=== PATIENT | female | born 1955 | race Caucasian/White ===

== ENCOUNTER → 2016-12-11 | Outpatient (REF) | payer OTHER | LOC: M LAB REF 16:07 | PROVIDERS: ATTEND Internal Medicine | DX: M25.549 Pain in joints of unspecified hand (principal) ==

== ENCOUNTER → 2017-04-20 | Outpatient (REF) | payer OTHER ==
[2017-04-23 00:06] LABS: Lyme Disease IgG/IgM Antibodie <0.91 ISR (0.00-0.90); Lyme Disease IgM Ab Quantitati <0.80 index (0.00-0.79)
== END ==
LOC: M LAB REF 16:46
PROVIDERS: ATTEND Nurse Practitioner Family
DX: M15.9 Polyosteoarthritis, unspecified (principal)

== ENCOUNTER → 2019-06-27 | Outpatient (CLI) | payer BC, OTHER ==
--- NOTE | 2019-06-27 12:41 | REP ---
Left wrist four views : There is no fracture or dislocation. Mineralization and joint spaces are normal except for joint space narrowing at the thumb C - MC articulation. There are no calcifications or foreign bodies. Impression: Joint space narrowing at the thumb C - MC articulation. Otherwise, negative left wrist . Electronically Signed by Binu Moss MD 06/27/2019 12:32 P
--- NOTE | 2019-06-27 12:43 | REP ---
Right hand four views: There is joint space narrowing at the thumb CMC articulation accompanied by a erosion into the base of the thumb metacarpal. Mineralization and joint spaces are otherwise unremarkable. There are no calcifications or foreign bodies. No fracture or dislocation. Impression: Findings at the thumb CMC articulation as described, otherwise negative right hand. Left hand four views: There is joint space narrowing at the thumb CMC articulation. There is lucency in the base of the thumb metacarpal compatible with a bone cyst. Mineralization and joint spaces otherwise are unremarkable. There are no calcifications or foreign bodies. There is no fracture or dislocation. Impression: Findings at the thumb CMC articulation. Otherwise, negative left hand. Electronically Signed by Binu Moss MD 06/27/2019 12:35 P
== END ==
LOC: M RAD 11:53
PROVIDERS: ATTEND Internal Medicine Rheumatology
DX: M19.041 Primary osteoarthritis, right hand (principal); M19.042 Primary osteoarthritis, left hand

== ENCOUNTER → 2019-07-13 | Outpatient (CLI) | payer BC, OTHER ==
[2019-07-13 14:23] LABS: BLOOD UREA NITROGEN 19 MG/DL (7-18); CREATININE FOR GFR 0.73 MG/DL (0.55-1.30); GLOMERULAR FILTRATION RATE > 60.0 (>45)
== END ==
LOC: M LAB 13:33
PROVIDERS: ATTEND Orthopaedic Surgery Hand Surgery
DX: Z01.812 Encounter for preprocedural laboratory examination (principal)

== ENCOUNTER → 2019-09-07 | Outpatient (REF) | payer BC, OTHER | LOC: M LAB REF 16:47 | PROVIDERS: ATTEND Physician Assistant | DX: J02.9 Acute pharyngitis, unspecified (principal) ==

== ENCOUNTER → 2020-01-24 | Outpatient (CLI) | payer MEDICARE, BC, OTHER ==
--- NOTE | 2020-01-24 15:50 | REP ---
MAXILLOFACIAL CT STUDY WITHOUT CONTRAST: HISTORY: Chronic maxillary sinusitis. COMPARISON: CT study, August 22, 2014. FINDINGS: Preliminary digital canvas baster jumpbasting radiograph is unremarkable. Incidental note is again made of a diffuse stippled pattern of intradermal calcifications in the periorbital and malar soft tissues, unchanged from comparison study. This may reflect chronic connective tissue disease. The maxillary sinuses are clear. There is no evidence of ethmoid, sphenoid, or frontal sinusitis. Mastoid aeration is normal and symmetric. Middle ear cavities are aerated. No petrous bone abnormality is seen. There are aerated eliezer bullosa bilaterally in the middle turbinates, larger on the right than the left. The nasal turbinate bows to the left with a moderate to large septal beak posteriorly positioned. These findings are unchanged. Ostiomeatal complexes remain widely patent. No intraorbital abnormality is seen. The deep facial soft tissues are unremarkable. IMPRESSION: Septal deviation to the left with a moderate-size septal beak. Aerated eliezer bullosa bilaterally, right larger than left. Clear paranasal sinuses. Diffuse dermal calcification. Electronically Signed by Jakob Sharma MD 01/24/2020 05:30 P
== END ==
LOC: M RAD 13:45
PROVIDERS: ATTEND Otolaryngology
DX: J34.2 Deviated nasal septum (principal); J32.0 Chronic maxillary sinusitis

== ENCOUNTER → 2021-01-13 | Outpatient (CLI) | payer MEDICARE, BC ==
--- NOTE | 2021-01-13 15:22 | DEXAMM ---
INDICATION: OSTEOPENIA. COMPARISON: None. TECHNIQUE: Bone density was measured using dual-energy x-ray absorptiometry (DEXA). FINDINGS: AP SPINE L1-L4 BMD 1.380 g/cm2 Young Adult T-Score 1.5 Age Matched Z-Score 3.1. LT FEMUR, TOTAL BMD 1.137 g/cm2 Young Adult T-Score 1.0 Age Matched Z-Score 2.3. LT NECK BMD 1.155 g/cm2 Young Adult T-Score 0.8 Age Matched Z-Score 2.3. RT FEMUR, TOTAL BMD 1.078 g/cm2 Young Adult T-Score 0.6 Age Matched Z-Score 1.8. RT NECK BMD 1.095 g/cm2 Young Adult T-Score 0.4 Age Matched Z-Score 1.9. IMPRESSION: There is normal bone density of the spine. There is normal bone density of the left hip. There is normal bone density of the right hip. FOLLOW-UP: Recommendation for the next bone density exam: 5 years. <Electronically signed by Binu Rowe > 01/13/21 [id number]
== END ==
LOC: M WHC 13:56
PROVIDERS: ATTEND Internal Medicine
DX: M81.0 Age-related osteoporosis without current pathological fracture (principal)

== ENCOUNTER → 2021-07-25 | Outpatient (CLI) | payer MEDICARE, BC, OTHER ==
[~2021-07-25] MED LIST: ESTR3TA; FINA15GE; MYCO250C
== END ==
LOC: M LABSMTC 10:07
PROVIDERS: ATTEND Anesthesiology
DX: Z01.818 Encounter for other preprocedural examination (principal); Z11.52 Encounter for screening for COVID-19

== ENCOUNTER 2021-07-30 06:41 | Day surgery (SDC) | payer MEDICARE, BC, OTHER ==
[~2021-07-30] VITALS: Ht 171.4 cm; Wt 56.2 kg
[~2021-07-30 06:41] MED LIST changes: +NS 1,000 ML IV ONE
--- OUTSIDE RECORDS SUMMARY | 2021-07-30 06:43 | CCD | Continuity of Care Document ---
Author Author Mikki PEOPLES Organization Unknown Address [address] [place] [address] Phone [phone] Care Team Providers Care Employment Appeals Examiner Name Role Phone Phan Weathers M.D. [facility] [phone] Problems Active Problems Provider Date Female climacteric state Althea Peoples MD Onset: 01/11/20 12 Social History Type Date Description Comments Sex Unknown Tobacco Use Start: Unknown End: Unknown Quit Smoking Status Reviewed: 06/11/21 Quit ETOH Use Occasionally consumes alcohol Recreational Drug Use Denies Drug Use Tobacco Use Start: Unknown End: Unknown Patient is a former smoker Exercise Type/Frequency Exercises regularly Allergies, Adverse Reactions, Alerts Active Allergies Criticality Reaction | Severity Comments Date NKDA Unable to assess criticality 01/11/2012 Envirnomental Unable to assess criticality 03/15/2015 Medications Active Medications SIG Qnty Indications Ordering Provide r Date Premarin 0.3mg Tablets 1 by mouth three times a day 270tabs Althea Peoples MD 01/11/2012 Finacea 15% Gel Unknown Doxycycline Monohydrate 50mg Tablets Unknown Immunizations Description No Information Available Vital Signs Date Vital Result Comment 06/11/2021 2:08pm BP Systolic 120 mmHg BP Diastolic 78 mmHg Height 66.75 inches 5'6.75" Weight 129.00 lb BMI (Body Mass Index) 20.4 kg/m2 BSA (Body Surface Area) 1.67 m2 05/31/2020 2:35pm BP Systolic 148 mmHg BP Diastolic 86 mmHg Height 66.75 inches 5'6.75" Weight 130.00 lb BMI (Body Mass Index) 20.5 kg/m2 BSA (Body Surface Area) 1.68 m2 Results Description No Information Available Procedures Date Code Description Status 06/11/2021 07003 Office/Outpatient Established MDM 10-19 Min Completed 11/05/2020 [id number] Mammogram Completed 10/04/2019 [id number] Mammogram Completed 07/15/2018 [id number] Mammogram Completed 12/03/2011 [id number] Bone Mineral Density Test Comple 20/20 [employer] 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 Althea Peoples MD N9 5.8 Other specified menopausal and perimenopausal disorders Z12.39 Encounter for oth screening for malignant neoplasm of breast Assessments Date Code Description Provider 06/11/2021 N95.8 Other specified menopausal and p erimenopausal disorders Althea Peoples MD 06/11/2021 Z12.39 Encounter for other screening for malignant neoplasm of breast Althea Peoples MD Plan of Treatment Future Appointment(s):* 06/19/2022 2:00 pm - Althea Peoples MD at [facility] lamp replacer 06/11/2021 - Althea Peoples MD* N95.8 Other specified menopausal and perimenopausal disorders * Z12.39 Encounter for other screening for malignant neoplasm of breast Functional Status Description No Information Available Mental Status Description No Information Available Referrals Description No Information Available
--- OUTSIDE RECORDS SUMMARY | 2021-07-30 06:43 | CCD | Continuity of Care Document ---
Author Author Mikki PEOPLES Organization Unknown Address [address] [place] [address] Phone [phone] Care Team Providers Care Quickbooks Bookkeeper Name Role Phone Phan Weathers M.D. 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
--- OUTSIDE RECORDS SUMMARY | 2021-07-30 06:44 | CCD ---
Author Author [facility] Organization [facility] Address Unknown Phone Unavailable Care Team Providers Care Party Plan Salesperson Name Role Phone Nicholas Cedillo MD Unavailable Unavailable Nicholas Cedillo MD Unavailable Unavailable Nicholas Cedillo MD Unavailable Unavailable Nicholas Cedillo MD Unavailable Unavailable Nicholas Cedillo MD Unavailable Unavailable Nicholas Cedillo MD Unavailable Unavailable Nicholas Cedillo MD Unavailable Unavailable Nicholas Cedillo MD Unavailable Unavailable Nicholas Cedillo MD Unavailable Unavailable Nicholas Cedillo MD Unavailable Unavailable Nicholas Cedillo MD Unavailable Unavailable Nicholas Cedillo MD Unavailable Unavailable Nicholas Cedillo MD Unavailable Unavailable Nicholas Cedillo MD Unavailable Unavailable Nicholas Cedillo MD Unavailable Unavailable Nicholas Cedillo MD Unavailable Unavailable Nicholas Cedillo MD Unavailable Unavailable Nicholas Cedillo MD Unavailable Unavailable Nicholas Cedillo MD Unavailable Unavailable Nicholas Cedillo MD Unavailable Unavailable Nicholas Cedillo MD Unavailable Unavailable Nicholas Cedillo MD Unavailable Unavailable Nicholas Cedillo MD Unavailable Unavailable Nicholas Cedillo MD Unavailable Unavailable Nicholas Cedillo MD Unavailable Unavailable Nicholas Cedillo MD Unavailable Unavailable Nicholas Cedillo MD Unavailable Unavailable Nicholas Cedillo MD Unavailable Unavailable Nicholas Cedillo MD Unavailable Unavailable Nicholas Cedillo MD Unavailable Unavailable Nicholas Cedillo MD Unavailable Unavailable Nicholas Cedillo MD Unavailable Unavailable Nicholas Cedillo MD Unavailable Unavailable Nicholas Cedillo MD Unavailable Unavailable Nicholas Cedillo MD Unavailable Unavailable Nicholas Cedillo MD Unavailable Unavailable Nicholas Cedillo MD Unavailable Unavailable Mamadou, S Leonel MD Unavailable Unavailable Mamadou, S Leonel NOE Unavailable Unavailable Mamadou, S Leonel MD Unavailable Unavailable Mamadou, S Leonel MD Unavailable Unavailable Mamadou, S Leonel MD Unavailable Unavailable Mamadou, S Leonel MD Unavailable Unavailable Mamadou, S Leonel MD Unavailable Unavailable Mamadou, S Leonel MD Unavailable Unavailable Mamadou, S Leonel MD Unavailable Unavailable Mamadou, S Leonel MD Unavailable Unavailable Mamadou, S Leonel MD Unavailable Unavailable Mamadou, S Leonel MD Unavailable Unavailable Mamadou, S Leonel MD Unavailable Unavailable PEOPLES, Johann HODGSON MD Unavailable Unavailable PEOPLES, Johann HODGSON MD Unavailable Unavailable PEOPLES, Johann HODGSON MD Unavailable Unavailable PEOPLES, L GOKUL NOE Unavailable Unavailable PEOPLES, L GOKUL NOE Unavailable Unavailable PEOPLES, L GOKUL NOE Unavailable Unavailable PEOPLES, L GOKUL NOE Unavailable Unavailable PEOPLES, L GOKUL NOE Unavailable Unavailable PEOPLES, L GOKUL NOE Unavailable Unavailable PEOPLES, L GOKUL NOE Unavailable Unavailable PEOPLES, L GOKUL NOE Unavailable Unavailable PEOPLES, L GOKUL NOE Unavailable Unavailable PEOPLES, L GOKUL NOE Unavailable Unavailable PEOPLES, L GOKUL NOE Unavailable Unavailable PEOPLES, L GOKUL NOE Unavailable Unavailable PEOPLES, L GOKUL NOE Unavailable Unavailable PEOPLES, L GOKUL NOE Unavailable Unavailable PEOPLES, L GOKUL NOE Unavailable Unavailable PEOPLES, L GOKUL NOE Unavailable Unavailable PEOPLES, L GOKUL NOE Unavailable Unavailable PEOPLES, L GOKUL NOE Unavailable Unavailable PEOPLES, L GOKUL NOE Unavailable Unavailable PEOPLES, L GOKUL NOE Unavailable Unavailable PEOPLES, L GOKUL NOE Unavailable Unavailable PEOPLES, L GOKUL NOE Unavailable Unavailable PEOPLES, L GOKUL NOE Unavailable Unavailable PEOPLES, L GOKUL NOE Unavailable Unavailable PEOPLES, L GOKUL NOE Unavailable Unavailable PEOPLES, Johann HODGSON MD Unavailable Unavailable PEOPLES, L GOKUL NOE Unavailable Unavailable PEOPLES, L GOKUL NOE Unavailable Unavailable PEOPLES, L GOKUL NOE Unavailable Unavailable PEOPLES, L GOKUL NOE Unavailable Unavailable PEOPLES, Johann HODGSON MD Unavailable Unavailable PEOPLES, L GOKUL NOE Unavailable Unavailable PEOPLES, L GOKUL NOE Unavailable Unavailable PEOPLES, Johann HODGSON MD Unavailable Unavailable PEOPLES, Johann HODGSON MD Unavailable Unavailable PEOPLES, L GOKUL NOE Unavailable Unavailable PEOPLES, L GOKUL NOE Unavailable Unavailable PEOPLES, Johann HODGSON MD Unavailable Unavailable PEOPLES, Johann HODGSON MD Unavailable Unavailable PEOPELS, L GOKUL NOE Unavailable Unavailable PEOPLES, Johann GRAVESCI MD Unavailable Unavailable Johann PEOPLES MD Unavailable Unavailable JasielMairsa MD Unavailable Unavailable JasielMarisa MD Unavailable Unavailable JasielMarisa MD Unavailable Unavailable JasielMarisa MD Unavailable Unavailable FruitlandMarisa MD Unavailable Unavailable FruitlandMarisa MD Unavailable Unavailable FruitlandMarisa MD Unavailable Unavailable FruitlandMarisa MD Unavailable Unavailable JasielMarisa MD Unavailable Unavailable FruitlandMarisa MD Unavailable Unavailable FruitlandMarisa MD Unavailable Unavailable JasielMarisa MD Unavailable Unavailable JasielMarisa MD Unavailable Unavailable FruitlandMarisa MD Unavailable Unavailable FruitlandMarisa MD Unavailable Unavailable FruitlandMarisa MD Unavailable Unavailable JasielMarisa MD Unavailable Unavailable FruitlandMarisa MD Unavailable Unavailable JasielMarisa MD Unavailable Unavailable FruitlandMarisa MD Unavailable Unavailable JasielMarisa MD Unavailable Unavailable JasielMarisa MD Unavailable Unavailable FruitlandMarisa MD Unavailable Unavailable FruitlandMarisa MD Unavailable Unavailable JasielMarisa MD Unavailable Unavailable FruitlandMarisa MD Unavailable Unavailable JasielMarisa MD Unavailable Unavailable FruitlandMarisa MD Unavailable Unavailable JasielMarisa MD Unavailable Unavailable JasielMarisa MD Unavailable Unavailable JasielMarisa MD Unavailable Unavailable FruitlandMarisa MD Unavailable Unavailable FruitlandMarisa carmona MD Unavailable Unavailable FruitlandMarisa carmona MD Unavailable Unavailable FruitlandMarisa carmona MD Unavailable Unavailable JasielMarisa MD Unavailable Unavailable FruitlandMarisa carmona MD Unavailable Unavailable JasielMarisa MD Unavailable Unavailable JasielMarisa MD Unavailable Unavailable FruitlandMarisa carmona MD Unavailable Unavailable JasielMarisa carmona MD Unavailable Unavailable JasielMarisa MD Unavailable Unavailable JasielMarisa MD Unavailable Unavailable JasielMarisa MD Unavailable Unavailable FruitlandMarisa MD Unavailable Unavailable FruitlandMarisa MD Unavailable Unavailable JasielMarisa MD Unavailable Unavailable JasielMarisa MD Unavailable Unavailable FruitlandMarisa MD Unavailable Unavailable FruitlandMarisa MD Unavailable Unavailable JasielMarisa MD Unavailable Unavailable FruitlandMarisa MD Unavailable Unavailable JasielMarisa MD Unavailable Unavailable JasielMarisa MD Unavailable Unavailable Fruitland, F Chisholm MD Unavailable Unavailable JasielMarisa carmona MD Unavailable Unavailable JasielMarisa carmona MD Unavailable Unavailable FruitlandMarisa carmona MD Unavailable Unavailable JasielMarisa MD Unavailable Unavailable JasielMarisa MD Unavailable Unavailable JasielMarisa carmona MD Unavailable Unavailable FruitlandMarisa carmona MD Unavailable Unavailable JasielMarisa carmona MD Unavailable Unavailable JasielMarisa carmona MD Unavailable Unavailable FruitlandMarisa carmona MD Unavailable Unavailable FruitlandMarisa carmona MD Unavailable Unavailable JasielMarisa carmona MD Unavailable Unavailable JasielMarisa carmona MD Unavailable Unavailable JasielMarisa carmona MD Unavailable Unavailable JasielMarisa carmona MD Unavailable Unavailable FruitlandMarisa carmona MD Unavailable Unavailable JasielMarisa carmona MD Unavailable Unavailable FruitlandMarisa carmona MD Unavailable Unavailable FruitlandMarisa carmona MD Unavailable Unavailable JasielMarisa carmona MD Unavailable Unavailable JasielMarisa carmona MD Unavailable Unavailable JasielMarisa carmona MD Unavailable Unavailable JasielMarisa carmona MD Unavailable Unavailable JasielMarisa carmona MD Unavailable Unavailable JasielMarisa carmona MD Unavailable Unavailable FruitlandMarisa carmona MD Unavailable Unavailable JasielMarisa carmona MD Unavailable Unavailable JasielMarisa carmona MD Unavailable Unavailable FruitlandMarisa carmona MD Unavailable Unavailable JasielMarisa carmona MD Unavailable Unavailable JasielMarisa MD Unavailable Unavailable BANDAR, P SANDRA MD Unavailable Unavailable BANDAR, P SANDRA MD Unavailable Unavailable BANDAR, P SANDRA MD Unavailable Unavailable BANDAR, P SANDRA MD Unavailable Unavailable BANDAR, P SANDRA MD Unavailable Unavailable BANDAR, P SANDRA MD Unavailable Unavailable BANDAR, P SANDRA MD Unavailable Unavailable BANDAR, P SANDRA MD Unavailable Unavailable BANDAR, P SANDRA MD Unavailable Unavailable BANDAR, P SANDRA MD Unavailable Unavailable BANDAR, P SANDRA MD Unavailable Unavailable BANDAR, P SANDRA MD Unavailable Unavailable BANDAR, P SANDRA MD Unavailable Unavailable BANDAR, P SANDRA MD Unavailable Unavailable BANDAR, P SANDRA MD Unavailable Unavailable BANDAR, P SANDRA MD Unavailable Unavailable BANDAR, P SANDRA MD Unavailable Unavailable BANDAR, P SANDRA MD Unavailable Unavailable BANDAR, P SANDRA MD Unavailable Unavailable BANDAR, P SANDRA MD Unavailable Unavailable BANDAR, P SANDRA MD Unavailable Unavailable BANDAR, P SANDRA MD Unavailable Unavailable BANDAR, P SANDRA MD Unavailable Unavailable BANDAR, P SANDRA MD Unavailable Unavailable BANDAR, P SANDRA MD Unavailable Unavailable BANDAR, P SANDRA MD Unavailable Unavailable BANDAR, P SANDRA MD Unavailable Unavailable BANDAR, P SANDRA MD Unavailable Unavailable BANDAR, P SANDRA MD Unavailable Unavailable BANDAR, P SANDRA MD Unavailable Unavailable BANDAR, P SANDRA MD Unavailable Unavailable BANDAR, P SANDRA MD Unavailable Unavailable BANDAR, P SANDRA MD Unavailable Unavailable ABNDAR, P SANDRA MD Unavailable Unavailable BANDAR, P SANDRA MD Unavailable Unavailable BANDAR, P SANDRA MD Unavailable Unavailable BANDAR, P SANDRA MD Unavailable Unavailable BANDAR, P SANDRA MD Unavailable Unavailable BANDAR, P SANDRA MD Unavailable Unavailable BANDAR, P SANDRA MD Unavailable Unavailable BANDAR, P SANDRA MD Unavailable Unavailable BANDAR, P SANDRA MD Unavailable Unavailable BANDAR, P SANDRA MD Unavailable Unavailable BANDAR, P SANDRA MD Unavailable Unavailable BANDAR, P SANDRA MD Unavailable Unavailable BANDAR, P SANDRA MD Unavailable Unavailable BANDAR, P SANDRA MD Unavailable Unavailable BANDAR, P SANDRA MD Unavailable Unavailable BANDAR, P SANDRA MD Unavailable Unavailable BANDAR, P SANDRA MD Unavailable Unavailable BANDAR, P SANDRA MD Unavailable Unavailable BANDAR, P SANDRA MD Unavailable Unavailable BANDAR, P SANDRA MD Unavailable Unavailable BANDAR, P SANDRA MD Unavailable Unavailable BANDAR, P SANDRA MD Unavailable Unavailable BANDAR, P SANDRA MD Unavailable Unavailable BANDAR, P SANDRA MD Unavailable Unavailable BANDAR, P SANDRA MD Unavailable Unavailable BANDAR, P SANDRA MD Unavailable Unavailable BANDAR, P SANDRA MD Unavailable Unavailable BANDAR, P SANDRA MD Unavailable Unavailable BANDAR, P SANDRA MD Unavailable Unavailable BANDAR, P SANDRA MD Unavailable Unavailable BANDAR, P SANDRA MD Unavailable Unavailable BANDAR, P SANDRA MD Unavailable Unavailable BANDAR, P SANDRA MD Unavailable Unavailable BANDAR, P SANDRA MD Unavailable Unavailable BANDAR, P SANDRA MD Unavailable Unavailable BANDAR, P SANDRA MD Unavailable Unavailable BANDAR, P SANDRA MD Unavailable Unavailable BANDAR, P SANDRA MD Unavailable Unavailable BANDAR, P SANDRA MD Unavailable Unavailable BANDAR, P SANDRA MD Unavailable Unavailable BANDAR, P SANDRA MD Unavailable Unavailable BANDAR, P SANDRA MD Unavailable Unavailable BANDAR, P SANDRA MD Unavailable Unavailable BANDAR, P SANDRA MD Unavailable Unavailable BANDAR, P SANDRA MD Unavailable Unavailable BANDAR, P SANDRA MD Unavailable Unavailable BANDAR, P SANDRA MD Unavailable Unavailable BANDAR, P SANDRA MD Unavailable Unavailable BANDAR, P SANDRA MD Unavailable Unavailable BANDAR, P SANDRA MD Unavailable Unavailable BANDAR, P SANDRA MD Unavailable Unavailable BANDAR, P SANDRA MD Unavailable Unavailable BANDAR, P SANDRA MD Unavailable Unavailable BANDAR, P SANDRA MD Unavailable Unavailable BANDAR, P SANDRA MD Unavailable Unavailable BANDAR, P SANDRA MD Unavailable Unavailable BANDAR, P SANDRA MD Unavailable Unavailable BANDAR, P SANDRA MD Unavailable Unavailable BANDAR, P SANDRA MD Unavailable Unavailable BANDAR, P SANDRA MD Unavailable Unavailable Re-disclosure Warning The records that you are about to access may contain information from federally-assisted alcohol or drug abuse programs. If such information is present, then the following federally mandated warning applies: This information has been disclosed to you from records protected by federal confidentiality rules (42 CFR part 2). The federal rules prohibit you from making any further disclosure of this information unless further disclosure is expressly permitted by the written consent of the person to whom it pertains or as otherwise permitted by 42 CFR part 2. A general authorization for the release of medical or other information is NOT sufficient for this purpose. The Federal rules restrict any use of the information to criminally investigate or prosecute any alcohol or drug abuse patient.The records that you are about to access may contain highly sensitive health information, the redisclosure of which is protected by Article 27-F of the [facility] Public Health law. If you continue you may have access to information: Regarding HIV / AIDS; Provided by facilities licensed or operated by the [facility] Office of Mental Health; or Provided by the [facility] Office for People With Developmental Disabilities. If such information is present, then the following [facility] mandated warning applies: This information has been disclosed to you from confidential records which are protected by state law. State law prohibits you from making any further disclosure of this information without the specific written consent of the person to whom it pertains, or as otherwise permitted by law. Any unauthorized further disclosure in violation of state law may result in a fine or fdc sentence or both. A general authorization for the release of medical or other information is NOT sufficient authorization for further disc losure. Allergies and Adverse Reactions Type Description Substance Reaction Status Data Source(s ) Propensity to adverse reactions Propensity to adverse reactions NKDA [facility] ([facility]) Family History Family Member Name Family Member Gender Family Member Status Date o f Status Description Data Source(s) Unknown Unknown Problem [facility] ([facility]) Unknown Female Problem [facility] ([facility]) Unknown Female Problem [facility] ([facility]) Encounters Encounter Providers Location Date Indications Data Source(s ) Outpatient Attender: SANDRA PORTILLO MD 10/09/2021 12:00:00 AM [facility] Outpatient Attender: SANDRA TREJO 021 12:00:00 AM EDT - 06/12/2021 01:08:18 PM [facility] Outpatient 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 02:00:00 PM EDT [facility] ([facility]) Outpatient Attender: Leonel Cedillo MD Main Office 06/03/2021 02:00:00 PM EDT [facility] ([facility]) Outpatient Attender: SANDRA TREJO 021 12:00:00 AM EDT - 02/06/2021 01:54:08 PM [facility] Outpatient Attender: SANDRA PORTILLO MD 01/02/2021 12:00:00 AM [facility] Outpatient Attender: Phan Oliver 0 12/31/2020 02:30:00 PM EDT [facility] ([facility] ) Outpatient Attender: SANDRA TREJO 021 12:00:00 AM EST - 09/26/2020 12:27:42 PM EST Rheumatoid arthritis without rheumatoid factor, unspecified [facility] Rheumatoid arthritis without rheumatoid factor, unspecified site Outpatient Attender: SANDRA TREJO 020 12:00:00 AM EDT - 06/27/2020 11:54:18 AM EDT Unspecified osteoarthritis, unspecified 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 COVID-19 VACCINE, MRNA-1273, LNP-S (MODERNA)/PF 11/26/2020 1 2:00:00 AM EST completed [facility] COVID-19 VACCINE Moderna 10/25/2020 12:00:00 AM EST completed [facility] Vaccine Series Complete: NOThis Data was Submitted to [facility] Via [employer]. COVID-19 VACCINE, MRNA-1273, LNP-S (MODERNA)/PF 10/25/2020 1 2:00:00 AM EST completed [facility] Medications Medication Brand Name Start Date Product Form Dose Route Admi nistrative Instructions Pharmacy Instructions Status Indications Reaction Description Data Source(s) 5 mg 06/12/2021 12:00:00 AM EDT tablet 40 TAKE TWO TABLETS BY MOUTH EVERY DAY FOR 7 DAYS THEN TAKE ONE TABLET DAILY TAKE TWO TABLETS BY MOUTH EVERY DAY FOR 7 DAYS THEN TAKE ONE TABLET DAILY SOLD: 06/23/2021 [facility] 1.479-0.188- 0.225 gram 06/04/2021 12:00:00 AM EDT tablet 24 TAKE DIRECTED BY DOCTOR TAKE DIRECTED BY DOCTOR SOLD: 06/08/2021 [facility] Sutab Sutab 06/03/2021 12:00:00 AM EDT active [facility] ([facility]) 15 % 04/25/2021 12:00:00 AM EDT gel 100 APPLY TO FACE AT NIGHT APPLY TO FACE AT NIGHT SOLD: 04/28/2021 [facility] 500 mg 01/24/2021 12:00:00 AM EDT tablet 20 TAKE ONE TABLET BY MOUTH TWO TIMES A DAY FOR 10 DAYS TAKE ONE TABLET BY MOUTH TWO TIMES A DAY FOR 10 DAYS SOLD: 05/08/2021 [facility] 500 mg 01/24/2021 12:00:00 AM EDT tablet 20 TAKE ONE TABLET BY MOUTH TWO TIMES A DAY FOR 10 DAYS TAKE ONE TABLET BY MOUTH TWO TIMES A DAY FOR 10 DAYS SOLD: 01/24/2021 [facility] Shingrix Shingrix 12/31/2020 12:00:00 AM EDT activ e MED[facility] ([facility]) Covid-19 vaccine, Unspecified 11/26/2020 12:00:00 AM EST completed [facility] ([facility]) Medication administered onsite Covid-19 vaccine, Unspecified 10/25/2020 12:00:00 AM EST completed [facility] ([facility]) Medication administered onsite Fluticasone Propionate Fluticasone Propionate 10/04/2020 12:00:[address] active [facility] ([facility], ) 500 mg 09/02/2020 12:00:00 AM EST tablet 20 TAKE ONE TABLET BY MOUTH EVERY 12 HOURS FOR 10 DAYS TAKE ONE TABLET BY MOUTH EVERY 12 HOURS FOR 10 DAYS SO LD: 09/03/2020 [facility] 0.3 mg 08/17/2020 12:00:00 AM EST tablet 270 TAKE ONE TABLET BY MOUTH THREE TIMES A DAY TAKE ONE TABLET BY MOUTH THREE TIMES A DAY SOLD: 11/24/2020 [facility] 0.3 mg 08/17/2020 12:00:00 AM EST tablet 270 TAKE ONE TABLET BY MOUTH THREE TIMES A DAY TAKE ONE TABLET BY MOUTH THREE TIMES A DAY SOLD: 02/24/2021 [facility] 0.3 mg 08/17/2020 12:00:00 AM EST tablet 270 TAKE ONE TABLET BY MOUTH THREE TIMES A DAY TAKE ONE TABLET BY MOUTH THREE TIMES A DAY SOLD: 05/26/2021 [facility] 0.3 mg 08/17/2020 12:00:00 AM EST tablet 270 TAKE ONE TABLET BY MOUTH THREE TIMES A DAY TAKE ONE TABLET BY MOUTH THREE TIMES A DAY SOLD: 08/21/2020 [facility] mycophenolate mofetil 250 MG Oral Capsul e Mycophenolate Mofetil 250 MG Oral Capsule (CELLCEPT) Mycophenolate Mofetil 250 MG Oral Capsule (CELLCEPT) 07/23/2020 12:00:00 AM EST [facility] Raynaud's disease without gangreneHigh risk medication useInflammatory arthritis TAKE ONE CAPSULE BY MOUTH TWICE A DAY [facility] Raynaud's disease without gangrene High risk medication use Inflammatory arthritis mycophenolate mofetil 250 MG Oral Capsul e Mycophenolate Mofetil 250 MG Oral Capsule (CELLCEPT) Mycophenolate Mofetil 250 MG Oral Capsule (CELLCEPT) 06/27/2020 12:00:00 AM EDT 250 mg Oral [facility] Raynaud's disease without gangreneHigh risk medication useInflammatory arthritis Take 1 capsule by mouth Two Times Daily [facility] Raynaud's disease without gangrene High risk medication use Inflammatory arthritis 15 % 12/10/2019 12:00:00 AM EDT gel 100 APPLY TO FACE ONCE DAILY EVERY NIGHT APPLY TO FACE ONCE DAILY EVERY NIGHT SOLD: 07/24/2020 [facility] Insurance Providers Payer name Policy type / Coverage type Policy ID Covered democrat ID Covered democrat's relationship to moore Policy [place] Plan Information BCBS EMPIRE ADI DIV [id number] SP [id number] [employer] [id number] SP [id number] [facility] U [id number] Self [id number] MEDICARE A [id number] Self [id number] [employer] O [id number] S [id number] MEDICARE C [id number] S [id number] BCBS EMPIRE ADI DIV [id number] SP [id number] [employer] [id number] SP [id number] [facility] [employer] [facility] Other 0 [id number] Self 0 EMPIRE ([facility]) O [id number] S [id number] BCBS EMPIRE ADI DIV [id number] SP [id number] [facility] [employer] [id number] Self [id number] [facility] [employer] Plan Health Maintenance Organization (HMO) [id number] Self [id number] [facility] [employer] [id number] Self [id number] [facility] [employer] [id number] [facility] Commercial [id number] [facility] Commercial [id number] [facility] Commercial [id number] [facility] Commercial [id number] [facility] Health Maintenance Organization (HMO) [id number] Self [facility] [id number] SP [id number] MEDICARE [id number] SP [id number] [facility] [id number] SP [id number] [facility] [employer] [facility] Other 0 [id number] Self 0 Problems, Conditions, and Diagnoses Code Display Name Description Problem Type Effective Dates Data Source(s) J32.4 Chronic pansinusitis Chronic pansinusitis Diagnosis 09/26/2020 11:21:40 AM [facility] J30.1 Allergic rhinitis due to pollen Allergic rhinitis due to pollen Diagnosis 09/26/2020 11:21:40 AM [facility] I73.00 Raynaud's syndrome without gangrene Raynaud's sy ndrome without gangrene Diagnosis 09/26/2020 11:21:40 AM [facility] Z79.899 Other usp (current) drug therapy O ther usp (current) drug therapy Diagnosis 09/26/2020 11:21:40 AM [facility] M06.00 Rheumatoid arthritis without rheumatoid factor, unspecified site Rheumatoid arthritis without rheumatoid factor, unspecified site Diagnosis 09/26/2020 11:21:40 AM [facility] [id number] Allergic rhinitis due to animals Allergic rhinit is due to animals Problem 11/12/2020 12:00:00 AM EST [facility] ([facility]) Note: 3+ reaction to cat dander on intra dermal test completed in 2011. [id number] Allergic rhinitis due to house dust mite Allergic rhinitis due to house dust mite Problem 11/12/2020 12:00:00 AM EST [facility] ([facility]) Note: 3+ reaction to dust mite on intrad ermal test completed in 2011. [id number] Allergic rhinitis caused by mold Allergi c rhinitis caused by mold Problem 11/12/2020 12:00:00 AM EST [facility] ([facility]) Note: 3+ reaction to Alternaria and Stem phylium mold spores on scratch test completed in 2011. [id number] Allergic rhinitis due to pollen Allergic rhiniti s due to pollen Problem 11/12/2020 12:00:00 AM EST [facility] ([facility]) Note: 2+ reaction to tree mix # 2 and fi ve weed mix on intradermal test completed in 2011. Surgeries/Procedures Procedure Description Date Indications Data Source(s) OFFICE OUTPATIENT VISIT 10 MINUTES 06/11/2021 12:00:00 AM EDT [facility] ([facility]) OFFICE OUTPATIENT NEW 30 MINUTES 06/03/2021 12:00:00 A M EDT [facility] ([facility]) Bone Mineral Density Test 01/13/2021 12:00:00 AM EDT [facility] ([facility]) OFFICE OUTPATIENT VISIT 25 MINUTES 12/31/2020 12:00:00 AM EDT [facility] ([facility]) Mammogram 11/05/2020 12:00:00 AM EST M [facility] ([facility]) Mammogram 11/05/2020 12:00:00 AM EST M [facility] ([facility]) CYCLIC CITRULLINATED PEPTIDE ANTIBODY <td>CCP ANTIBODY</td><td>Routine</td><td>06/27/2020 11:56 AM EDT</td><td> Inflammatory arthritis</td><td> </td> 06/27/2020 11:56:00 AM EDT Inflammatory [facility] Inflammatory arthritis SEDIMENTATION RATE RBC AUTOMATED <td>SEDIMENTATION RAT E, AUTOMATED</td><td>Routine</td><td>06/27/2020 11:56 AM EDT</td><td> Inflammatory arthritis High risk medication use Raynaud's disease without gangrene</td><td> </td> 06/27/2020 11:56:00 AM EDT Raynaud's disease without gangreneHigh r [facility]ud's [facility] without gangrene High risk medication use Inflammatory arthritis BLOOD COUNT COMPLETE AUTO&AUTO DIFRNTL WBC COUNT <td>C BC AND DIFFERENTIAL</td><td>Routine</td><td>06/27/2020 11:56 AM EDT</td><td> Inflammatory arthritis High risk medication use</td><td> </td> 06/27/2020 11:56:00 AM EDT [facility] use Inflammatory arthritis RHEUMATOID FACTOR QUANTITATIVE <td>RHEUMATOID FACTOR</td><td>Routine</td><td>06/27/2020 11:56 AM EDT</td><td> Inflammatory arthritis</td><td> </td> 06/27/2020 11:56:00 AM EDT [facility] Inflammatory arthritis C-REACTIVE PROTEIN HIGH SENSITIVITY <td>CARDIAC HIGH S ENSITIVE C-REACTIVE PROTEIN (HS-CRP)</td><td>Routine</td><td>06/27/2020 11:56 AM EDT</td><td> Inflammatory arthritis</td><td> </td> 06/27/2020 11:56:00 AM EDT [facility] Inflammatory arthritis ANTINUCLEAR ANTIBODIES DELFINA <td>DELFINA</td><td>Routine</td ><td>06/27/2020 11:56 AM EDT</td><td> Inflammatory arthritis</td><td> </td> 06/27/2020 11:56:00 AM EDT [facility] Inflammatory arthritis URIC ACID BLOOD <td>URIC ACID</td><td>Routin e</td><td>06/27/2020 11:56 AM EDT</td><td> Inflammatory arthritis</td><td> </td> 06/27/2020 11:56:00 AM EDT Inflammatory [facility] Inflammatory arthritis COMPREHENSIVE METABOLIC PANEL <td>COMPREHENSIVE METABO LIC PANEL</td><td>Routine</td><td>06/27/2020 11:56 AM EDT</td><td> Inflammatory arthritis High risk medication use</td><td> </td> 06/27/2020 11:56:00 AM EDT High risk medication useInflammatory [facility] High risk medication use Inflammatory arthritis Results ID Date Data Source [id number] 06/30/2021 10:30:10 AM EDT [facility] Name Value Range Interpretation Code Description Data Kelly rce(s) Supporting Document(s) Progress Note [facility] MWZYJk3uDzWOZbRf01/PGQhiJMNxx6QnZTxcGMx0OLhhOEWaJ6ThKQN2lP7yCGT2OVxWMjBeWbMuQFQc lbm [file] AgICAgICAgICAgICAgICAgICAgICAgICAgICAgICAgICAgICAgICAgICAgICAgICAgICAgICAgICAgIC AgICAgICAgICAgICAgICAgDQogICAgICAgICAgICAg ICAgICAgICAgICAgICAgICAgICAgICAgICAgICAgICAgICAgICAgICAgICAgICAgICAgICAgICAgICAg ICAgICAgICAgICAgICAgICAgICAgICAgICAgDQogICAgICAgICAgICAgICAgICAgICAgICAgICAgICAg ICAgICAgICAgICAgICAgICAgICAgICAgICAgICAgIC AgICAgICAgICAgICAgICAgICAgICAgICAgICAgICAgICAgICAgDQogICAgICAgICAgICAgICAgICAgIC AgICAgICAgICAgICAgICAgICAgICAgICAgICAgICAgICAgICAgICAgICAgICAgICAgICAgICAgICAgIC AgICAgICAgICAgICAgICAgICAgDQogICAgICAgICAg ICAgICAgICAgICAgICAgICAgICAgICAgICAgICAgICAgICAgICAgICAgICAgICAgICAgICAgICAgICAg ICAgICAgICAgICAgICAgICAgICAgICAgICAgICAgDQogICAgICAgICAgICAgICAgICAgICAgICAgICAg ICAgICAgICAgICAgICAgICAgICAgICAgICAgICAgIC AgICAgICAgICAgICAgICAgICAgICAgICAgICAgICAgICAgICAgICAgDQogICAgICAgICAgICAgICAgIC AgICAgICAgICAgICAgICAgICAgICAgICAgICAgICAgICAgICAgICAgICAgICAgICAgICAgICAgICAgIC AgICAgICAgICAgICAgICAgICAgICAgDQogICAgICAg ICAgICAgICAgICAgICAgICAgICAgICAgICAgICAgICAgICAgICAgICAgICAgICAgICAgICAgICAgICAg ICAgICAgICAgICAgICAgICAgICAgICAgICAgICAgICAgDQogICAgICAgICAgICAgICAgICAgICAgICAg ICAgICAgICAgICAgICAgICAgICAgICAgICAgICAgIC AgICAgICAgICAgICAgICAgICAgICAgICAgICAgICAgICAgICAgICAgICAgDQogICAgICAgICAgICAgIC AgICAgICAgICAgICAgICAgICAgICAgICAgICAgICAgICAgICAgICAgICAgICAgICAgICAgICAgICAgIC RzBXVoBOIsLUHmXMBbYBCsPUEfGIShXKQlCDa8N0nw LFLnGSLpUI3jDLm3Wo5+UUmZFkYiPXI9cgUisB2NCO2ih5PnMCgyCQEtm5VkWHf9CE9HLQElPZpdKQ5L IWgnts5AZEYbJSJlpGDLf7izJoNnZCG0YNVjHbyrWW6NKVCxL3vulwVjCBWhIROOJLgjXFLSLFbhDTWP BVVvJPHmTnLdOpWtMSOqDTYpTPQPPJK4TPLeWfTmLY JoBFAdYR4FJCXjC852ifLjYX5NCx1MGpWxTA3msu1TZehyUDZaWfxUFjr6SVubJP5VtIEhdTE9EDRiTA YODwHqO9eyj1YrBKKrTJVIGUikYT1Yt1KgwVFuTVv+Yc3CJA5ow8YqOQv1NCEnTE2cja5WAOwAVyEnI2 AdwAzlZXJkm2wvZBHsIN9opBDcXXE2BQbfbTOMRKBh IF2wZUHFLIFirZE0JkIfScKoWxXgLVZ7CUScXB5hYZvtFP1KIOQ3YSusJNGgGYEeT2iAAtZpPYHnQKDa bWvmOT0FTjZvU8JmddPmvNMlIVZfZYZHGv0+KKhfcuTjQafEPfLdPINfm1ZqUOc9OI0VLTCkQQlaDT1S HYNxtE0jKFbmXG8SMdDyOxEoBMSAQeBkR02eoYUbBH y9T4DwIeHcEOGuZgctHCSnCUzhEfIkPUIrSdBnCTvaJZ6+ID4+IVevOO0BIJzdmuJaHGVzZk1OYPVyRF HrYN5kCLNyFTAqS0U2gIovCIFYIoNrH3adjbxtBP2yQCLqA835kGdtylIbKFQ0NEOtWx1AWJPrFMX8SP WitHVxMucgTCQZWHwgTZ6TtZHnJQQ3iL0tNIdzYAXg BCWmQ4bJMwNyxAisIJ34eKbuykQkfLKvHQg+Zs2RAR1wt7RlOFc7koCbNItxPDHjYCmqZWBqEQKwWMTn WHL3KDJ5GNNCFzPxVEIaGUEnLMvfBCZcQZFpqo8AHBIqRHR3QTYvFjRuZBEeKSKzWTjhOZKsYMNnJSA2 WROiPUTcMZ3RAcQwZNIzDVChNGusWVDjDNTqvr4GGL WlKEBxCqa0UVXhTZGsUTAdKUmyTAEpHCQ6YMD7HRYzSYEyHG5VKyWjXENyXUT7OZhsEVDxGOOxnq8RVF SpUUIgRzP4VxEoNDGrRZQoSUnyGTYaKEIuKUOsGWZvLUSoFT4MYfAmJCVqPDUzATFcZJCnILZtlz2CZP VrZOVkVvd7SWEyUNChUIIfOGfsYJXpKYC2ECs6TIYs PTSxHH7SEsFgLOLfFJJ7YsLaSCGfABPisw5VVNEgVEPjPhtsWGEuHCTsCGRmCXzwRBCyTQR4SVE9PWYf YSSdJS4PYqXnSLVcKdHzCnKfDVUoJPGgln3POHIdVKLuDiKyRINcMVHkWROvRPzcDNZxJHCcASP6BGAk XIXoDR4NJzRpJGNaZkC6JSNlNISiPXSxds8AMOUlDU UqEpXfSVIdKPLqVCPvBGchRTNfORJ4BCdqBLStEVFzTA6OAkRcDHOfDpW1QycfPNDyMTFkik6JADEmTY FqJVu7RDKoIWDgDGTlLHylRUDiECS2PEU2AALqUOTpGP2RMrIcGQYlOvHpClRcDFFkJATpqh0DVZZsDH MtBhYmISUaVMNtWSAwJBvjUDKyFDI8WlJ0POJwQWRy JQ8QQoVrNWWeThybAcQxQZDeHOEcyc4RPQIuYPKaXOJ2JtDlCWNhLYRqXYfnZCArORK7QLAnPKQiAKFm KT3PLfXyJKSiGnu9MhtqVXQiYGSurd6ECWWmOILsBBPsKsEsNGNyXSRrZIciBUApFIR6IXCcINXfEIJa EP1XEjCoOLOoYli4GejgEDYoGNDyaz4WGVXqNJV9ZI qmZiKzNMMpDNAdHYupHOQvNSLnRNOoMYLxJZLdDN3NDcNjNHMzPJQeRDMdZHUwLCBfss7ZYOMmKOC8OR tmPXTdAZFfFWWkZAjrSNWpKLXlZaK7NPDmMVTcST7YJlOhFDTrVUGhSTFkMRIoRXXhee3PPGYyQAJ1Ln AyLbHdDORwLYUkQXg3bvQyzBDmXPl7ZC1CB9BmjyQq ACWDEm6Lq344GIWsCXKuSa9RV5pcVt9xGPAaIBVPIt4CYLo3GUZpREP7XDMxZiHsB7LtJQJhGsWaVOP2 CuQaODG0IXl+EGywYwGrAFTtScF2BkP4SDZeMHS4RnG5DbA9BhB6UPH6DQ6iRQOOIv7+DQpzdGFydHhy ZBBLVtWtStxbMEhuQBHFSp4W ID Date Data Source [id number] 03/18/2021 01:50:00 PM EDT [facility] ([facility]) Name Value Range Interpretation Code Description Data Kelly rce(s) Supporting Document(s) Calcidiol [Mass/volume] in Serum or Plasma Laboratory test result [facility] ([facility]) ID Date Data Source [id number] 02/06/2021 05:35:08 PM EDT [facility] Name Value Range Interpretation Code Description Data Kelly rce(s) Supporting Document(s) Progress Note [facility] ZRCVBn6sMoKFHbZb74/BUYffMQRea1BdTKodCVq2AEqdYOYrU7KdYBS3kJ9fQUD5SMxDRgZzSqRyWYFf lbm [file] AgICAgICAgICAgICAgICAgICAgICAgICAgICAgICAg ICAgICAgICAgICAgICAgICAgICAgICANCiAgICAgICAgICAgICAgICAgICAgICAgICAgICAgICAgICAg ICAgICAgICAgICAgICAgICAgICAgICAgICAgICAgICAgICAgICAgICAgICAgICAgICAgICAgICAgICAg ICAgICANCiAgICAgICAgICAgICAgICAgICAgICAgIC AgICAgICAgICAgICAgICAgICAgICAgICAgICAgICAgICAgICAgICAgICAgICAgICAgICAgICAgICAgIC AgICAgICAgICAgICAgICANCiAgICAgICAgICAgICAgICAgICAgICAgICAgICAgICAgICAgICAgICAgIC AgICAgICAgICAgICAgICAgICAgICAgICAgICAgICAg ICAgICAgICAgICAgICAgICAgICAgICAgICANCiAgICAgICAgICAgICAgICAgICAgICAgICAgICAgICAg ICAgICAgICAgICAgICAgICAgICAgICAgICAgICAgICAgICAgICAgICAgICAgICAgICAgICAgICAgICAg ICAgICAgICANCiAgICAgICAgICAgICAgICAgICAgIC AgICAgICAgICAgICAgICAgICAgICAgICAgICAgICAgICAgICAgICAgICAgICAgICAgICAgICAgICAgIC AgICAgICAgICAgICAgICAgICANCiAgICAgICAgICAgICAgICAgICAgICAgICAgICAgICAgICAgICAgIC AgICAgICAgICAgICAgICAgICAgICAgICAgICAgICAg ICAgICAgICAgICAgICAgICAgICAgICAgICAgICANCiAgICAgICAgICAgICAgICAgICAgICAgICAgICAg ICAgICAgICAgICAgICAgICAgICAgICAgICAgICAgICAgICAgICAgICAgICAgICAgICAgICAgICAgICAg ICAgICAgICAgICANCiAgICAgICAgICAgICAgICAgIC AgICAgICAgICAgICAgICAgICAgICAgICAgICAgICAgICAgICAgICAgICAgICAgICAgICAgICAgICAgIC AgICAgICAgICAgICAgICAgICAgICANCiAgICAgICAgICAgICAgICAgICAgICAgICAgICAgICAgICAgIC AgICAgICAgICAgICAgICAgICAgICAgICAgICAgICAg ICAgICAgICAgICAgICAgICAgICAgICAgICAgICAgICANCjw/tNHoU5bofNTdzbJ3M3ztSa8NAu2MMZ1f v3WxNHGyIRbmqaHyWahLDdRvRBBtJshSNwd4XIxwAP8QhGHxH0DqK6WrYLrcFE1ENDDgSRJeqOUoYMOv BIQfQbB8ITAkYVnzVN2ZiYGoDPhiEDMcGGIvFkDmBZ TgFRJeDJAbYDBrCLPDLOTlMBZzUkCrDRQgPWWdPPurITANMF2PNfQxW7RtnR54ELsTEw2+DQplbmRvYm jSQpA1YSTae3CjMJl6CZ2YOISsGcdsz9XlFywvZXWBDKcdXO7XYOQ4RPI6CDSlJo5AUKZyK287aiPhFA 1VVk0AItFlWS8xtz2DJuaeEDHwLfoUTja2WOmrUW6N gMLjDGnWti8jkwEoizEYt3OeepPdjXZGr65hAvP7dZRqSYhxRUPyXTXpII0gWP7bUCVbEHMmOhBqAVGH UF2RMJCeSERtrNChFRFbWSUYGO5TLGciNIW7FLBfxtFgfDJbGUopBE3YSBLvopWaYbyiQLIDEJb+Pg0K ZX4sf0AjJSveVQYeKX3gug5GWIvJXpFhR4G6eAKbX9 G1ZUoyKv5YUBZmNMLwBzEvSYLBGRshRR9HDW2wjkF4MZ6JmLYrYGDsVEAhkLDoESb9Y63slERrXThbIM 0KICA+Jacquelin+Ys0IOTTwVHCfQTNtCpZhZEXMEmKzZ3YdT9PLn4PsJ2YlXH15cIfnfwMvGLfrTR2PXI7tCQ QxHJHZDO3KgCAvvP9sarUeXsHvFRSWEcWfX67vgOZx NIKrVGZ1RCSePm8VEOWlS9TtevHnhDxgglCcELCsYHCKLI2WADwlqlAuyBNyiIquFS42dIlaBG7WCs8B PfYcEB8hnd0GcIPwWl6IANA1MQ7KCYPvSIIbJLSrXGV9VPWvJmGjVNoxMVHdAADfGNC7ERCrCBMoSW1H CuTrHUUxFdx2YPCcTECjCKWblk3FSNAcHYGrLMV4Lb SiDEBwHHCpTAfaNFQqXCEiWPK5NKEmMGVeOT2RElHqDTZjPTI6MIkrTPRlGBAbxp0NFUFwXGIdZIO9Di ZtJHUhUTAlGTfvLIKnWHS2NPz8TCNqQBZwQF5BKcWkYWNwRLahOXKxSACgSWZcdr8NAPLoJGUfSDE8QG GnCEPlAAGxDUpiSWToKMAeMPg7PESrVVHiNJ2OHiKp PMLnYQZ7YXYgCXZxPGSklh2EJKBqBKIpIlzlZXQsGGNsOCGhHJktNBQhYSX9RHFeCIDpZKFiKJ4YHdPd PYGiXCA5NhcaNJGqRGAugj3UFMNmONSxGXwxYXGzDKYyYORhWTxfRBQqSSC4JZV4RLNcOLVmDN9MEdAd HVRqVEx1OHIuGYPlFMScgn9NOXDbWHDkTVJtYvIeBW EbZZGmIXmkKPAyQRUvFCzgXITyEMBsYF9KZgMlFTCyJyScTbogOCSeYKVtes3LEPBnQFZhKGA6HzGpIR RwGSOoTVtlCMBxBCUoIcQsATGgSPZoYL1HHiEnSWJiHcJ1PlNyELDpYNChnj3ICKPwNNDwAhkxFYKoTL XcEABaYSndKQQdXEJ5ISJcMNWqRSRsWT4RQbFpMZKs QbV5FiGjKFQyCSIyni3LEQPxBTKxTFZ2EVTsCLQfMSBiUMohOLUqIDM6NDU7RGNvMLYlIQ9SKpVaTGAk AbXyReOgLURnFJYbrd0EYSQvUUKqNbZxWOKfACJaZBQxZJsgTUKrBJQ2HkHrKJUpZHBeXU0TOdNrKPWq LyCqAEXmVHZfEMCzyh9LZGYzMYPtGwKuXZCwCHRbJH WbDJvuQCCrYZO1UPS4VEYlFNDgOT9SCbJeDIYfAwf0JZZwGWIuBXFnua2XYMYzIKZoPYOuLyGrBXYbLN IvHCsqALKtOWK8BvX6FZPmQIOmZR0UKlQrJTGyOzp7TuJmGZXtKBAmuk7HBQGwQQKiQOghVXBdYWUtDN CnFKx9clMfjQKcHTe7CI7NP8TwwmUtQXVDWj4Xg962 ERO3RTYqRy6YV1dzPj6xLBDuZWSFPy4EJCj0ASY7AkY2QnDyQgL5ENJ7QREjUYj2GHCySeWeEuP9Tmm+ RPf8VDyeMMayXWXsVIW8Exc1ZGJoUgneHSUaLqJmBsZlHC6wXNFOBn3+DQpzdGFydHhyZWYNCjQwMDY1 OAznQORFGb3O ID Date Data Source [id number] 12/30/2020 07:47:00 AM EDT [facility] ([facility]) Name Value Range Interpretation Code Description Data Kelly rce(s) Supporting Document(s) Cholesterol [Mass/volume] in Serum or Plasma 193 mg/dL 131-200 [facility] ([facility]) Triglyceride [Mass/volume] in Serum or Plasma 117 mg/dL 30-150 [facility] ([facility]) Cholesterol in LDL [Mass/volume] in Serum or Plasma by calcu lation 62 CALC 50-159 [facility] ([facility]) Cholesterol in HDL [Mass/volume] in Serum or Plasma 108 mg/dL 35-60 [facility] ([facility]) ID Date Data Source [id number] 12/30/2020 07:47:00 AM [facility] Name Value Range Interpretation Code Description Data Kelly rce(s) Supporting Document(s) Glucose [Mass/volume] in Serum or Plasma 78 mg/dL 74-99 [facility] ([facility]) 100-125 mg/dL PRE-DIABETES/FASTING >126 mg/dL DIABETES/FASTING Urea nitrogen [Mass/volume] in Serum or Plasma 12 mg/dL 7-18 [facility] ([facility]) Creatinine 0.7 mg/dL 0.6-1.3 [facility] Sodium [Moles/volume] in Serum or Plasma 139 meq/L 136-145 [facility] ([facility]) Chloride [Moles/volume] in Serum or Plasma 103 meq/L 98-107 [facility] ([facility]) Potassium [Moles/volume] in Serum or Plasma 4.6 meq/L 3.5-5.1 [facility] ([facility]) Calcium [Mass/volume] in Serum or Plasma 9.0 mg/dL 8.5-10.1 [facility] ([facility]) Carbon dioxide, total [Moles/volume] in Serum or Plasma 26 meq/L 21 -32 [facility] ([facility]) Alkaline phosphatase isoenzyme [Units/volume] in Serum or Pl asma 34 mg/dL 46-116 [facility] ([facility]) Total Bilirubin 0.2 mg/dL 0.2-1.0 [facility] ([facility]) Aspartate aminotransferase [Enzymatic activity/volume] in Serum or Plasma 13 U/L 15-37 [facility] ([facility] ) Albumin [Mass/volume] in Serum or Plasma 3.5 g/dL 3.4-5.0 [facility] ([facility]) Alanine aminotransferase [Enzymatic activity/volume] in Seru m or Plasma 13 U/L 12-78 [facility] ([facility]) Proteinase 3 Ab [Units/volume] in Serum 6.8 g/dL 6.4-8.2 [facility] [facility] A/G Ratio 1.06 CALC 1.00-1.90 [facility] ([place] [facility] Glomerular filtration rate/1.73 sq M pre dicted among non-blacks [Volume Rate/Area] in Serum or Plasma by Creatinine-based formula (MDRD) Laboratory test result [facility] [facility] Glomerular filtration rate/1.73 sq M pre dicted among blacks [Volume Rate/Area] in Serum or Plasma by Creatinine-based formula (MDRD) Laboratory test result [facility] [facility] <content>CHRONIC KIDNEY DISEASE STAGING PER NKF</content>
<content></content>
<content>STAGE I & II GFR >= 60 NORMAL TO MILDLY DECREASED</content>
<content>STAGE III GFR 30-59 MODERATELY DECREASED</content>
<content>STAGE IV GFR 15-29 SEVERELY DECREASED</content>
<content>STAGE V GFR <15 VERY LITTLE GFR LEFT</content>
<content>ESRD GFR <15 ON [employer]</content>
<content></content> ID Date Data Source [id number] 12/30/2020 07:47:00 AM EDT [facility] ([facility]) Name Value Range Interpretation Code Description Data Kelly rce(s) Supporting Document(s) Erythrocyte sedimentation rate by Westergren method 5 mm/hr 0-15 [facility] [facility] ID Date Data Source [id number] 12/30/2020 07:47:00 AM EDT [facility] Name Value Range Interpretation Code Description Data Kelly rce(s) Supporting Document(s) Leukocytes [#/volume] in Blood by Automated count 6.1 x10*3/UL 4.1-10 .9 [facility] ([facility]) Hemoglobin [Mass/volume] in Blood 13.0 g/dL 12.0-18.0 [facility] ([facility]) Erythrocytes [#/volume] in Blood by Automated count 3.88 x10*6/UL 4.2 0-6.30 [facility] ([facility]) MCV 98.1 fL 80.0-97.0 [facility] [facility] Hematocrit [Volume Fraction] of Blood by Automated count 38.1 % 3 7.0-51.0 [facility] ([facility]) MCH 33.5 pg 26.0-32.0 [facility] [facility] MCHC 34.1 g/dL 31.0-38.0 [facility] [facility] Erythrocyte distribution width [Ratio] by Automated count 13.0 % 11.6-13.7 [facility] ([facility]) Platelets [#/volume] in Blood by Automated count 251 x10*3/UL 140-440 [facility] ([facility]) MPV 8.9 FL 7.8-11.0 [facility] [facility] Lymph % 35.0 % 10.0-58.5 [facility] [facility] Mid % 7.5 % 1.7-9.3 [facility] [facility] Neut % 57.5 % 37.0-92.0 [facility] [facility] Lymph # 2.1 x10*3/UL 0.6-4.1 [facility] ([facility]) Mid # 0.5 x10*3/UL 0.1-0.6 [facility] ([facility]) Neut # 3.5 x10*3/UL 2.0-7.8 [facility] ([facility]) ID Date Data Source [id number] 11/05/2020 12:00:00 AM EST [facility] Gokul Peoples MD Patient Name:AMPARO ROSALES Date of : 1955[place] [address] Date of Exam: 1P#: Fax: [phone] EXAM: MAMMO SCREENING WITH CADCLINICAL INFORMATION: Screening examination. She has no current complaint,personal or family history of breast cancer. She had a negative leftductogram in 2009 at an outside facility.COMPARISON: 10/04/2019, 07/15/2018.The Volpara volumetric breast density category is C, the breasts areheterogeneously dense which may obscure small masses.Digital screening (2D) mammography was performed bilaterally.Additionally, breast tomosynthesis (3D mammography) was performedbilaterally in the CC and MLO projections and compared to the priorexam(s).FINDINGS: The breasts are very dense. This limits the sensitivity ofmammography.Scattered small benign appearing calcifications are present of doubtfulclinical significance.Large coarse calcifications are present, of no clinical significance.There is a stereotactic clip in the retroar eolar zone of the left breastunchanged from previous study. There is no skin thickening, architecturaldistortion, suspicious cluster of microcalcification, dominant mass orother secondary sign of malignancy.The 3D tomosynthesis images show no additional findings.IMPRESSION:BIRADS ACR Category 2, benign, benign findings. No evidence of malignancy.Stable exam. Followup in one year.This mammogram was read with the assistance of Estrellita Duran [employer], an FDAapproved computer aided detection system for mammography.Negative x-ray reports should not delay surgical consultation if a dominantor clinically suspicious mass is present.Not all breast cancers can be identified by mammography. Therefore, werecommend that you continue to perform regular breast self-examination andphysical examination and then promptly contact your physician of anyconcerns or changes.Adenosis and dense breasts may obscure an underlying neoplasm.The patient states that the last clinical breast exam was 05/2020.Based on the personal and family history information your patient suppliedat the time of imaging, her lifetime risk of breast cancer estimated by theTyrer-Cuzick model is 4.7%. Given that this patient has less than 20% TCrisk score, no further medical management is currently recommended at thistime. Wilver Flores, SHANNAN/[place] you for referring MAX ROSALES to our office. Electronically Signed - WILVER FLORES MD 11/05/20 16:49 Name Value Range Interpretation Code Description Data Kelly rce(s) Supporting Document(s) ID Date Data Source [id number] 09/26/2020 12:35:54 PM [facility] Name Value Range Interpretation Code Description Data Kelly rce(s) Supporting Document(s) Progress Note [facility] WLVRUr2lKpRRQfGp46/TGWwhWYDsi2QzYFmySPo9BLpeTBKaA7VwWQB9dD4cIDM3QKaJHfAbYaWoOFR8 lbm [file] ICAgICAgICAgICAgICAgICAgICAgICAgICAgICAgICAgICAgICAgICAgICAgICAgICAgICAgICAgICAg ICAgICAgICAgDQogICAgICAgICAgICAgICAgICAgIC AgICAgICAgICAgICAgICAgICAgICAgICAgICAgICAgICAgICAgICAgICAgICAgICAgICAgICAgICAgIC AgICAgICAgICAgICAgICAgICAgDQogICAgICAgICAgICAgICAgICAgICAgICAgICAgICAgICAgICAgIC AgICAgICAgICAgICAgICAgICAgICAgICAgICAgICAg ICAgICAgICAgICAgICAgICAgICAgICAgICAgICAgDQogICAgICAgICAgICAgICAgICAgICAgICAgICAg ICAgICAgICAgICAgICAgICAgICAgICAgICAgICAgICAgICAgICAgICAgICAgICAgICAgICAgICAgICAg ICAgICAgICAgICAgDQogICAgICAgICAgICAgICAgIC AgICAgICAgICAgICAgICAgICAgICAgICAgICAgICAgICAgICAgICAgICAgICAgICAgICAgICAgICAgIC AgICAgICAgICAgICAgICAgICAgICAgDQogICAgICAgICAgICAgICAgICAgICAgICAgICAgICAgICAgIC AgICAgICAgICAgICAgICAgICAgICAgICAgICAgICAg ICAgICAgICAgICAgICAgICAgICAgICAgICAgICAgICAgDQogICAgICAgICAgICAgICAgICAgICAgICAg ICAgICAgICAgICAgICAgICAgICAgICAgICAgICAgICAgICAgICAgICAgICAgICAgICAgICAgICAgICAg ICAgICAgICAgICAgICAgDQogICAgICAgICAgICAgIC AgICAgICAgICAgICAgICAgICAgICAgICAgICAgICAgICAgICAgICAgICAgICAgICAgICAgICAgICAgIC AgICAgICAgICAgICAgICAgICAgICAgICAgDQogICAgICAgICAgICAgICAgICAgICAgICAgICAgICAgIC AgICAgICAgICAgICAgICAgICAgICAgICAgICAgICAg ICAgICAgICAgICAgICAgICAgICAgICAgICAgICAgICAgICAgDQogICAgICAgICAgICAgICAgICAgICAg ICAgICAgICAgICAgICAgICAgICAgICAgICAgICAgICAgICAgICAgICAgICAgICAgICAgICAgICAgICAg HEWxSEBfZHLoYAScAXIaIFJyZNw8Q6qaZPEgIYCqJQ 7nNHd3Dr5+MEwVKgIxOII3xjIqqV0GLO1lk5SgNTkdZYMgt4JlLCj6QE7XLKUoVDpyBV5BTUffgt6QGH SeBLEbeOTFc5rnBkYaSZT7MUJxYpyoTO2YERXlU2aulgGpVDNaZLRQJCrqHDIYSUywKHUAMJOdCSDcGc FgGmDsLHBeEPJaXAZBUYP5AOOeMxMqLGfoBA7Qf3Rr qBR8OZz+Na4AHO0st8DxNZfdYvUcSH1ksx4AGWuSRmMwV7EctnG7WVF6ISGsIi2MNDVbEGVwlTIdKSQb RZFEMwTqL5IsxG10BPINAz4+MFvoxnWuAgcJHvS7FQXbh6XhYRc0CP0SOFUzLEq4nPQyYHVuL5Dcr4Ox Aa32OZXvQhkxRO6jSW9neYJgahWeVV1NFEN9JJNuXs 4fLGWvHXQtWgLmVPPFUM3LTKCtEAEnqNGtUARiBPSMRO1XDLzxZFP8DUFifaEstFSpLZfgEU3FFHJsrx QgMzcgMCBSDQo+Ts5UOF0gm2JcEOumEMQzHY4het2MTYaINrQsH5R3fTFvV4E6FEvfVc8IRVExBOXmXg SbQRSRCZqjOX9HRT2klwE8JV2LbXSbJFGsPTAfmOVb YCt4E13utXFqHJjuRF6BNXH+Jacquelin+Xk7TSYPoYIIfHKGxJmXdHZUQWbCxR0ExX2ODl9NxF0DoBF35bBjp lbOtMPxqBM7GHZ9yYRArRIZSUK2UpSPmdC9wpuCsNwFiJFDGMzLqC69ipPBlNBFsTXC4KEBzKl5NFOWu N6PxrjFfoLyvugOjHXZzXSWBGT4VMStwpbUpmGGkbH xsKD10nGydXQ0BJo7OKzGhJS8dmf9GpRKgTj7KTEC4JC6PEPDuPXPsIAGzZFX2RDFpWgNoBTroKURyJV CjWPV2OGHkSAHrHE9ICeIwBELxLasoDoEzNLPhOZJtqk9TLUMyXUYwLAr3LOWrKGGtNBEoZSvuEYUtKC CjIZJ2SSFrDYZvIK4ROsJzGNZuHCL4KbMmFEPgVOHz zr9TDOEpOIJuUUPwGBEfOHTmJOWqZJysOEByLXP2PDG3OIJxDHRlQN4RBeVyAGTbVMuoPcbmYMUeRVDj iy1GEKJpPGFaFHOxAKUhCFJhVLRlKIywOXWhWVIfCgF3VFTcPGXrSU3DRuWpCAOfFWLaVGzpAIAuPGLz xb3HPFPnXIDiJmTvHATtKTWjFFFgDKifUHVjCYY7Nr R8XXOkXRLxIO8SHmPlGDDaPQB6UsXwQKRaMCJltu6JHSGpVSQaGOU5DOUlXLFuJEVvJQnzXUXsNHG2Xz Z4ANCmLMBxLH1BVzKuWWGiLcGiYkPaSZEaVXEllm5DCKAbCOZhYVBcFWRkOYUzBTDvROmoWSWpDLXvKv raDWFgFRNkAR8VAgJjTXLcAqC6BTcnNINtWFDtym8D TVBwVHNcIQq9XNBhYENnLFUlTAukKTIxJHGbNkSrIOBzKFJvNQ6EHcIyMUSiWfP4WbXfNXEgSMPnra6S QJRcKLAlGvUvAYQqSSLdALUbOGpnZPEoEXQ5NUAlJUKyZIZfTR2PBiYmURGmEbH7ZeSsXESyAMPutk9E WGVaMHEwUES3QCIhJNJnORCmWDsgYUKaPYP8PzA5IN FdYOTwKX0IOoAeNCBrFfT9CBGiGCOyXAQsno1VZLTeJMTqCuCnNUNdGDOoQCVyAVwyKKWlHYV3UyVfWV DnPXXuUQ6XRcGiNTPpWqI6KRHdFVAmNSAmff8HANJtZYFtNjltBvBtJYJeTNEaORzeJJQwPIK7UPG0HW SaPZEmTC5YEiNdBQWyOjqeOHUdSPZlVODpkl6GZVCp ZJYePUDhFRDdVYWnJSZzVUkoRNSvVXHeRTMmPEKjQYPrJJ4POdJlDYMwCZVtRPWzWAAoETQcxu6EBFYe TIQ0MVWiHADnOWMlLWUiMXg3fiVklPFzNCc3WT3ZJ9IfyxFiGTXDLj8Ke652ZZN3UYEfCg1EY4pfDx6d AZNsVBGUCf8JJCj2UeQuSLPlMVMySsFkDSYkPCygIF Y9EZQxP3JnHXI2XoW+KJhbNaI2NEV3IXR6HIT9UQK5SLDdWqwzSOLuQERtBIf3NS3jRSEVCi4+DQpzdG SyiDzsLOTUSfAlTUohWYhsONREOy7U ID Date Data Source [id number] 07/17/2020 07:05:05 AM EDT [facility] Name Value Range Interpretation Code Description Data Kelly rce(s) Supporting Document(s) Progress Note [facility] RBUXQl5mNeGLXwXa88/JUGjeOVAow8KyIVyaDPe3GMrnFNWsQ0JiTXN3nD4ySPS2HRkREzKyWnRyCWF3 lbm [file] [employer]/UWG18wMuD/VbII3SAeSBH/CgT/Qbvd81PFLqfRr [file] Mni+/UIOHodFmNeDz/9YdvFGo4+Greeting Card Editor/GBS9tPGP7i2oKRGzxvIHGHAP3+FRNa7CfdxMxLdfU7u0o8Mgz [file] AgICAgICAgICAgICAgICAgICAgICAgICAgICAgICAgICAgICAgICAgICAgICAgICAgICAgICAgICAgIC AgICAgICAgICAgICANCiAgICAgICAgICAgICAgICAgICAgICAgICAgICAgICAgICAgICAgICAgICAgIC AgICAgICAgICAgICAgICAgICAgICAgICAgICAgICAg ICAgICAgICAgICAgICAgICAgICAgICANCiAgICAgICAgICAgICAgICAgICAgICAgICAgICAgICAgICAg ICAgICAgICAgICAgICAgICAgICAgICAgICAgICAgICAgICAgICAgICAgICAgICAgICAgICAgICAgICAg ICAgICANCiAgICAgICAgICAgICAgICAgICAgICAgIC AgICAgICAgICAgICAgICAgICAgICAgICAgICAgICAgICAgICAgICAgICAgICAgICAgICAgICAgICAgIC AgICAgICAgICAgICAgICANCiAgICAgICAgICAgICAgICAgICAgICAgICAgICAgICAgICAgICAgICAgIC AgICAgICAgICAgICAgICAgICAgICAgICAgICAgICAg ICAgICAgICAgICAgICAgICAgICAgICAgICANCiAgICAgICAgICAgICAgICAgICAgICAgICAgICAgICAg ICAgICAgICAgICAgICAgICAgICAgICAgICAgICAgICAgICAgICAgICAgICAgICAgICAgICAgICAgICAg ICAgICAgICANCiAgICAgICAgICAgICAgICAgICAgIC AgICAgICAgICAgICAgICAgICAgICAgICAgICAgICAgICAgICAgICAgICAgICAgICAgICAgICAgICAgIC AgICAgICAgICAgICAgICAgICANCiAgICAgICAgICAgICAgICAgICAgICAgICAgICAgICAgICAgICAgIC AgICAgICAgICAgICAgICAgICAgICAgICAgICAgICAg ICAgICAgICAgICAgICAgICAgICAgICAgICAgICANCiAgICAgICAgICAgICAgICAgICAgICAgICAgICAg ICAgICAgICAgICAgICAgICAgICAgICAgICAgICAgICAgICAgICAgICAgICAgICAgICAgICAgICAgICAg ICAgICAgICAgICANCiAgICAgICAgICAgICAgICAgIC AgICAgICAgICAgICAgICAgICAgICAgICAgICAgICAgICAgICAgICAgICAgICAgICAgICAgICAgICAgIC AgICAgICAgICAgICAgICAgICAgICANCjw/oUVeJ0wmeHYxndD0X0gjPz5CTr8LIU1ot7GzHQEmUZlsrv JyEseFEoKqPQGoKhqUEqs2USfoGQ5QgVKgV3ZcY8Ay HVugYU4ZAKWmPYJpuQNqMLVkFHHiAxB2FZBvZEjqXT6AaILgEDaoLPPxZLHiNyHpMIXqDSHgNFBuNCFf YYBJSYGsVJCpQlIiONCqONRuDAckSGLEJUI0BPNnQfIcCQOkPDHcKV8AQCAmA030keWfHS4YZy4NZfZe XI2oxt1XCZFoNOQdGeyVTrk0DQibOZ2BcDXuyQE1Pj TnWYALLmFaO8kbx4OlHNLyMGDTPLsaQS4Ef3SovFWqSQu+Fl7EUQ4ww8XcIFr9MrNvMS3eie2DRMcSYw RcW7HtaJmfMTNor5ffUUSuBY1hsVUkIHH7BUvvxPSUQVOkUQ1nZWKIYCCfwCZgHA58UqSmHhHtXCJ8XG JrLQ6pHCyzEU8QAWP4TJnxTZTwCTGiS5jSVxMgYFGk ZSRcqJpuEP1ORlAsQ7ZreuUhsWM0DRLpPOCLPo7+JLnhrpSuEyoVVwHoXYFbc1LnQZv2PV5TZYOzZNni JV0USUDuuH6cTZeyWM7HAoLnBZVrFONFRyGqG28pfFZgFVj8X2HjFpCiGVYhPihtHEHnRUewZhChBYDl WyBdDQogID4+ID4+XEslBV0EHPapnyQmQGZaNy6FRK SoWILeWP0kJNJrUTSgN2V6jYrtUORUQiRrA5rilgmkIX9rUETyO517xMnlpoHpKZZwBSXgXr8HMMBaBD Z7LJUqjFTuTMCyRTOHRDeeNT9WjGUvNJD8tM5tRCljTEFuUKGpY1eFIuFzgEwgNM63yDbzybXrfZRdBK o+Jm8WMZ5ov7MwOIo4wcOwACjhUNJ0TVtgSPLuISQt ZWWaVLJ2TDP8MKRZZlRsSOZfEAFrDCdkYTAxYVBnkq7HSXLqASH7Ntj0KJEsNWDdNETqXMncZQMiDPE8 EZD8JYVnXMDsRQ2SJqRuQDQvJHEpVCtmQENrMAWbuc5ZLHUxNJYtJhG6BuMbHAUkOLNoXBwmLDVeFGAl EjY8XLGpASUbIB8DMaPvLJNbKRUlQbuhBRAbUPCsba 4ZSDJqMPMsJhYjVPVxDSYgCNBxWAlxRJZsXWG8CFV5ORFcYBQkVI2MQyKkHATfFHTjAknvWUFhPPPfgu 5KCRNmYSLhDxI7EqOyLFFdSYLzOOhaJJRuYVEdGfQvIGAdGZAnDZ0PAoYxGUWzVLW6UNYyVFLaDBObri 4WBNXtTGXrTHr7WvWhKMOyMYOsXLpvGDAlRDV4UyNc COGcOVCsPQ9WHtCkJOLyGRs0TgrcGKWfMGOmhq9KKGFcRIAbWVk1JKNoIACeNYIrUBmcLWKjIGGdNZDj TLFfNEXvKM5MNxAwSUUuPgXlLirvTPKmKVEwuu0QBLFiGGMiSHZ1XoUoUZAoJJHvIVrmWITuRNA7HJK3 ZDKlSJCpGJ6XAoAuUYWiIoDaGgJfMJJpWHRlaa8MTP MxSPRdQsUwJLQsIOHoUMOdWQgpCGEqJCO6ZoY4YIMcZADaXS9MFbQbNJQtHgP6QIBjVGUlFMCyrz3UPW OsODAkYuP0TZWnONJmVWHoNLapZQNjCNL3GOwlCCIiDGUzXD5GTeGsZXJmFss2EoTpDZTxJEEtjp5IEV RhHIGqITD2ZJYcYKHbSOIvNBegJARrNPL6PJC1OPWd PWZjVI3XYuDiLZSwJco8VgOrQUExIMIdzz4LHAElOYXhZFt6RMMgPJIzVHRpWJmwCIAiHBCxRSHbDQGo BITrOP4FFyHiNDVqKNXjBxWlSIDsLFWuqe4LHSLjVHT6MCM6HPSyZEVrCSUgTFkzCXMrTPLjZIPfXHVs IDSrYN4EPvPuWAJiCCXhZzGwFONePCVdqw3WCTFhPD K0SfU6SVJeZGSsHGVlOLxtJNFcUIKnZrRcSBCzKGQbDY0KMrAkBNUyZMGkStPfYOQnMHRwgy3LMSWbMX J1ZZF5QzVoNEYbJZLiNCkhABTaOCS0JcP0DGZjFIJfSN1BQpHyYBVpOFE7DZBrUDWlTIUibv4WkOJesK ihga4LXKdSSk1NxDbxGSK1RKhsNv7soCM1GrRdPBWS Up6DjfZiHKUrPPYECKjlURMvTSpkCBJzWbRqDQIsTHGbX6M8JavbYHS2JcV1VLMmNJTbQiJ1IEB9IgE5 IMUhDUVvZiA6SaHbGHJ3VZmhZTx8XUO0QbO+EP3kLXf+Ew9Xe6VfpyU1reLgPEi1UOCxXY5YNPASC3CW Cg== ID Date Data Source [id number] 06/28/2020 12:27:35 PM EDT [facility] Name Value Range Interpretation Code Description Data Kelly rce(s) Supporting Document(s) Cyclic citrullinated peptide IgA+IgG Ab [Units/volume] in Serum or Plasma by Immunoassay 8 units 0[facility] NegativeNegative and indicates no CCP3an tibodies or levels below the negativecutoff of the assay.(NOTE)These results were obtained with the [employer] CCP3.1 IgG/IgAELISA. Anti-CCP values obtained with different sales team member's assaymethods may not be interchangeable. The magnitude of the reported IgGor IgA levels cannot be correlated to an endpoint titer. ID Date Data Source [id number] 06/28/2020 01:07:56 PM [facility] Name Value Range Interpretation Code Description Data Kelly rce(s) Supporting Document(s) Nuclear Ab Pattern Homogenous [Titer] in Serum <80 [facility] Nuclear Ab pattern.speckled [Titer] in Serum <80 [facility] Nuclear Ab pattern.rim [Titer] in Serum <80 [facility] Nuclear Ab pattern.nucleolar [Titer] in Serum <80 [facility] ID Date Data Source [id number] 06/27/2020 12:24:36 PM [facility] Name Value Range Interpretation Code Description Data Kelly rce(s) Supporting Document(s) Leukocytes [#/volume] in Blood by Automated count 8.3 10*3/uL 4-10 [facility] Erythrocytes [#/volume] in Blood by Automated count 3.99 10*6/uL 4.1- 5.[address] [facility] Hemoglobin [Mass/volume] in Blood 13.5 g/dL 11.5-15.5 [facility] Hematocrit [Volume Fraction] of Blood by Automated count 39.8 % 3 6-45 [facility] Erythrocyte mean corpuscular volume [Entitic volume] by Auto mated count 99.6 fL 80-[address] [facility] Erythrocyte mean corpuscular hemoglobin [Entitic mass] by Automated count 33.7 pg 27-[address] [facility] Erythrocyte mean corpuscular hemoglobin concentration [Mass/volume] by Automated count 33.8 g/dL 32.0-36.0 [facility] distribution width [Ratio] by Automated count 13.7 % 11.5-14.5 [facility] Platelets [#/volume] in Blood by Automated count 260 10*3/uL 150-400 [facility] Differential cell count method - Blood [facility] Neutrophils/100 leukocytes in Blood by Automated count 73 % [facility] Lymphocytes/100 leukocytes in Blood by Automated count 21 % [facility] Monocytes/100 leukocytes in Blood by Automated count 6 % [facility] Eosinophils/100 leukocytes in Blood by Automated count 0 % [facility] Basophils/100 leukocytes in Blood by Automated count 0 % [facility] Neutrophils [#/volume] in Blood by Automated count 6.00 10*3/uL 1.8-[address] [facility] Lymphocytes [#/volume] in Blood by Automated count 1.70 10*3/uL 1.2-[address] [facility] Monocytes [#/volume] in Blood by Automated count 0.50 10*3/uL 0-0.8 [facility] Eosinophils [#/volume] in Blood by Automated count 0.00 10*3/uL 0-0.5 [facility] Basophils [#/volume] in Blood by Automated count 0.00 10*3/uL 0-0.2 [facility] ID Date Data Source [id number] 06/27/2020 01:12:52 PM [facility] Name Value Range Interpretation Code Description Data Kelly rce(s) Supporting Document(s) Erythrocyte sedimentation rate 5 mm/hr <30 [facility] ID Date Data Source [id number] 06/27/2020 01:27:53 PM [facility] Value Range Interpretation Code Description Data Kelly rce(s) Supporting Document(s) C reactive protein [Mass/volume] in Serum or Plasma 5.9 mg/L <3.[address] [facility] (NOTE)CRPHS (mg/L) CVD risk <1.0 low 1.0- 3.0 average >3.0 high ID Date Data Source [id number] 06/27/2020 01:27:53 PM [facility] Value Range Interpretation Code Description Data Kelly rce(s) Supporting Document(s) Albumin [Mass/volume] in Serum or Plasma by Bromocresol green (BCG) dye binding method 4.2 g/dL 3.5-5.2 [facility] Bilirubin.total [Mass/volume] in Serum or Plasma 0.3 mg/dL <1.2 [facility] Calcium [Mass/volume] in Serum or Plasma 8.6 mg/dL 8.8-10.[address] [facility] Chloride [Moles/volume] in Serum or Plasma 99 mmol/L 98-107 [facility] Creatinine [Mass/volume] in Serum or Plasma 0.64 mg/dL 0.50-0.90 [facility] Glucose [Mass/volume] in Serum or Plasma 102 mg/dL 70-140 [facility] Alkaline phosphatase [Enzymatic activity/volume] in Serum or Plasma 36 U/L 35-104 [facility] Potassium [Moles/volume] in Serum or Plasma 4.4 mmol/L 3.4-5.1 [facility] Protein [Mass/volume] in Serum or Plasma 6.4 g/dL 6.4-8.3 [facility] Sodium [Moles/volume] in Serum or Plasma 133 mmol/L 136-[address] [facility] Aspartate aminotransferase [Enzymatic activity/volume] in Serum or Plasma 13 U/L <32 [facility] Urea nitrogen [Mass/volume] in Serum or Plasma 14 mg/dL 8-23 [facility] Osmolality of Serum or Plasma by calculation 277 mosm/kg 275-300 [facility] Creatinine/Urea nitrogen [Mass Ratio] in Serum or Plasma 22 [facility] Bicarbonate [Moles/volume] in Serum 24 mmol/L 22-29 [facility] Alanine aminotransferase [Enzymatic activity/volume] in Seru m or Plasma 7 U/L <33 [facility] Anion gap 3 in Serum or Plasma 10 mmol/L 8-15 [facility] Glomerular filtration rate/1.73 sq M pre dicted among non-blacks [Volume Rate/Area] in Serum or Plasma by Creatinine-based formula (MDRD) >[address] [facility] Glomerular filtration rate/1.73 sq M pre dicted among blacks [Volume Rate/Area] in Serum or Plasma by Creatinine-based formula (MDRD) >60 [facility] ID Date Data Source [id number] 06/27/2020 01:27:53 PM EDT [facility] Name Value Range Interpretation Code Description Data Kelly rce(s) Supporting Document(s) Rheumatoid factor [Units/volume] in Serum or Plasma <14 [facility] ID Date Data Source [id number] 06/27/2020 01:27:53 PM EDT [facility] Name Value Range Interpretation Code Description Data Kelly rce(s) Supporting Document(s) Urate [Mass/volume] in Serum or Plasma 4.6 mg/dl 2.4-5.7 [facility] ID Date Data Source [id number] 05/31/2020 12:00:00 PM EDT CHENTE (Samuels Woman INDUSTRIAL SOCIOLOGIST) Name Value Range Interpretation Code Description Data Kelly rce(s) Supporting Document(s) TP Reflex HPV ASCUS Laboratory test result MEDENT (Arvind Woman INDUSTRIAL SOCIOLOGIST) SPECIMEN PART------ A. Vaginal, ThinPrep Pap (Vocational Technical Education Director) CYTOLOGY HX-------- Other Information: Hysterectomy Previous Pap: DATE FINAL DIAGNOSIS---- INTERPRETATION: Negative for Intraepithelial Lesion or Malignancy. SPECIMEN ADEQUACY:Satisfactory for evaluation. TP Reflex HPV ASCUS Laboratory test result MEDENT (Arvind Woman INDUSTRIAL SOCIOLOGIST) Procedure Social History Code Duration Value Status Description Data Source(s ) Smoking 06/11/2021 12:00:00 AM EDT Quit completed Quit MED[facility] (Arvind Ramesh INDUSTRIAL SOCIOLOGIST) Alcohol intake 02/06/2021 12:00:00 AM EDT Current drinker of al cohol (finding) completed Current drinker of alcohol (finding) [facility] Tobacco use and exposure 02/06/2021 12:00:00 AM EDT Never used co mpleted Never used [facility] Cigarettes smoked current (pack per day) - Reported 02/07/20 12:00:[address]T [address]K [address] [facility] Smoking 02/06/2021 12:00:00 AM EDT Current some day smoker com pleted Current some day smoker [facility] Smoking 11/14/2020 02:36:49 PM EST Smokes tobacco daily (findi ng) completed Smokes tobacco daily (finding) ROMERO (Álvaro Cristobal MD [facility]) Smoking 11/12/2020 12:00:00 AM EST Patient is a former smoker completed Patient is a former smoker [facility] ([facility] ) Alcohol intake 07/17/2020 12:00:00 AM EDT Current drinker of al cohol (finding) completed Current drinker of alcohol (finding) [facility] Vital Signs ID Date Data Source UNK Name Value Range Interpretation Code Description Data Source(s) Systolic blood pressure 120 mm[Hg] 120 mm[Hg] M EDENT ([employer] INDUSTRIAL SOCIOLOGIST) Diastolic blood pressure 78 mm[Hg] 78 mm[Hg] MED[facility] ([employer] INDUSTRIAL SOCIOLOGIST) Body height 66.75 [in_i] 66.75 [in_i] MED[facility] (W istara Woman INDUSTRIAL SOCIOLOGIST) 5'6.75" Body weight 129.00 [lb_av] 129.00 [lb_av] MEDEN T ([employer] INDUSTRIAL SOCIOLOGIST) Body mass index (BMI) [Ratio] 20.4 kg/m2 20.4 k g/m2 MED[facility] (Arvind Woman INDUSTRIAL SOCIOLOGIST) Body surface area Derived from formula 1.67 m2 1.67 m2 MED[facility] (Arvind Woman INDUSTRIAL SOCIOLOGIST) Body height 68 [in_i] 68 [in_i] [facility] ([facility]) 5'8" Body weight 129.00 [lb_av] 129.00 [lb_av] MEDEN T ([facility]) Systolic blood pressure 135 mm[Hg] 135 mm[Hg] M EDENT ([facility]) Diastolic blood pressure 77 mm[Hg] 77 mm[Hg] MED[facility] ([facility]) Heart rate 57 /min 57 /min [facility] ([facility]) Body mass index (BMI) [Ratio] 19.6 kg/m2 19.6 k g/m2 [facility] ([facility]) Body weight 58.514 kg 58.514 kg [facility] Body temperature 97.4 [degF] 97.4 [degF] MED[facility] ([facility]) Systolic blood pressure 132 mm[Hg] 132 mm[Hg] M EDENT ([facility]) Diastolic blood pressure 80 mm[Hg] 80 mm[Hg] MED[facility] ([facility]) Body height 67 [in_i] 67 [in_i] MED[facility] ([facility]) 5'7" Body weight 129.50 [lb_av] 129.50 [lb_av] MEDEN T ([facility]) Body mass index (BMI) [Ratio] 20.3 kg/m2 20.3 k g/m2 MED[facility] ([facility]) Body weight 129.12 [lb_av] 129.12 [lb_av] MEDEN T ([facility]) Body height 65.5 [in_i] 65.5 [in_i] [facility] 5'5.50" Heart rate 60 /min 60 /min [facility] ([facility] Respiratory rate 18 /min 18 /min MED[facility] ( [facility]) Systolic blood pressure 130 mm[Hg] 130 mm[Hg] M EDENT ([facility]) Diastolic blood pressure 68 mm[Hg] 68 mm[Hg] [facility] ([facility]) Body mass index (BMI) [Ratio] 21.2 kg/m2 21.2 k g/m2 [facility] ([facility]) Body height 68 [in_i] 68 [in_i] MEDENT ([facility]) 5'8" Body weight 128.00 [lb_av] 128.00 [lb_av] MEDEN T ([facility]) Body weight 58.061 kg 58.061 kg [facility] ([facility]) Body surface area Derived from formula 1.69 m2 1.69 m2 [facility] ([facility]) Body mass index (BMI) [Ratio] 19.5 kg/m2 19.5 k g/m2 [facility] ([facility]) Jamieson body weight 140 [lb_av] 140 [lb_av] [facility] ([facility]) Body mass index (BMI) [Ratio] 20.5 kg/m2 20.5 k g/m2 [facility] ([employer] INDUSTRIAL SOCIOLOGIST) Body height 66.75 [in_i] 66.75 [in_i] [facility] (W ise Woman INDUSTRIAL SOCIOLOGIST) 5'6.75" Systolic blood pressure 148 mm[Hg] 148 mm[Hg] M EDENT ([employer] INDUSTRIAL SOCIOLOGIST) Diastolic blood pressure 86 mm[Hg] 86 mm[Hg] [facility] ([employer] INDUSTRIAL SOCIOLOGIST) Body surface area Derived from formula 1.68 m2 1.68 m2 [facility] ([employer]USTRIAL SOCIOLOGIST) Body surface area 1.68 m2 1.68 m2 [facility] ([employer]USTRIAL SOCIOLOGIST) Body weight 130.00 [lb_av] 130.00 [lb_av] KD Sandra ([employer] INDUSTRIAL SOCIOLOGIST) ID Date Data Source [id number] 10/04/2020 11:42:33 AM [facility] Name Value Range Interpretation Code Description Data Source(s) WEIGHT RECORDED 128 lb 128 lb [facility] ID Date Data Source [id number] 07/17/2020 07:05:05 AM [facility] Name Value Range Interpretation Code Description Data Source(s) WEIGHT RECORDED 132.2 lb 132.2 lb [facility] Body height Measured 66.93 in 66.93 in [facility] Patient Treatment Plan of Care Planned Activity Planned Date Details Description Data Source (s) mycophenolate mofetil 250 MG Oral Capsule 07/23/2020 12:00:00 AM [facility] mycophenolate mofetil 250 MG Oral Capsule 06/27/2020 12:00:00 AM [facility]
--- OUTSIDE RECORDS SUMMARY | 2021-07-30 06:44 | CCD | Continuity of Care Document ---
Author Author Mikki CEDILLO M.D. Organization Unknown Address [address] [place] [id number] Phone [phone] Care Team Providers Care Macaroni Maker Name Role Phone Phan Weathers M.D. AUTM [phone] Problems Active Problems Provider Date Screening for malignant neoplasm of colon Neisha Pedroza, A.N.P. Onset: 10/26/2012 Dysphagia Leonel Cedillo M.D. Onset: 07/11/20 15 Family history of malignant neoplasm of gastrointestin al tract Neisha Pedroza,A.N.P. Onset: 10/26/2012 Social History Type Date Description Comments Sex Unknown ETOH Use Occasionally Tobacco Use Start: Unknown Patient is a current smoker, smo kes every day Allergies and adverse reactions Description No Known Drug Allergies Medications Active Medications SIG Qnty Indications Ordering Provide r Date Sutab [id number] Tablets as directed 1box Leonel Cedillo M.D. 06/03/2021 Premarin 0.9mg Tablets Unknown Immunizations Description No Information Available Vital Signs Date Vital Result Comment 06/03/2021 2:22pm Height 68 inches 5'8" Weight 129.00 lb BP Systolic 135 mmHg BP Diastolic 77 mmHg Heart Rate 57 /min BMI (Body Mass Index) 19.6 kg/m2 Weight 58.514 kg Body Temperature 97.4 F 04/10/2016 11:18am Height 68 inches 5'8" Weight 134.00 lb BP Systolic 134 mmHg BP Diastolic 74 mmHg Heart Rate 60 /min BMI (Body Mass Index) 20.4 kg/m2 Weight 60.782 kg Results Description No Information Available Procedures Date Code Description Status 06/03/2021 01152 Office/Outpatient [facility] 30 -44 Minutes Completed Medical Devices Description No Information Available Encounters Type Date Location Provider Dx Diagnosis Office Visit 06/03/2021 2:00p Main Office Leonel Cedillo M.D. Z 86.010 Personal history of colonic polyps Assessments Date Code Description Provider 06/03/2021 Z86.010 Personal history of colonic poly ps Leonel Cedillo M.D. Plan of Treatment Future Appointment(s):* 07/30/2021 7:30 am - Leonel Cedillo M.D. at Main Office 06/03/2021 - Leonel Cedillo M.D.* Z86.010 Personal history of colonic polyps* Comments:* 65 yo wf who presents for colon cancer screening. Last scope was in 2012. Her father had colon cancer. No c/o abdominal pain, weight loss, change in bowel habits, or rectal bleeding. Personal h/o colonic polyps. Plan:1.Schedule patient for Colonoscopy. 2. Informed consent given.3. Advised to stop asa, plavix,and anticoagulation 3 to 7 days prior to the procedures. Functional Status Description No Information Available Mental Status Description No Information Available Referrals Description No Information Available
[2021-07-30] MEDS ORDERED: propofoL 200 MG/20 ML VIAL As Ordered ONE (07:49)
[2021-07-30] MEDS ORDERED: LIDOCAINE 2% 100MG/5ML SDV (FOR ANES.) As Ordered ONE (07:49)
--- NOTE | 2021-07-30 08:03 | ROOR ---
Patient Name: Mikki Rosales Procedure Date: 07/30/2021 7:33 AM Date of : 1955 Age: 65 Room: [facility] Gender: Female Note Status: Finalized Procedure: Total Colonoscopy to Cecum Indications: High risk colon cancer surveillance: Personal history of colonic polyps, Last colonoscopy: 2015 Providers: Leonel Cedillo MD Referring MD: ANG HOWE JR, MD Requesting Provider: Medicines: Monitored Anesthesia Care Complications: No immediate complications. Procedure: Pre-Anesthesia Assessment: - The heart rate, respiratory rate, oxygen saturations, blood pressure, adequacy of pulmonary ventilation, and response to care were monitored throughout the procedure. The Colonoscope was introduced through the anus and advanced to the cecum, identified by appendiceal orifice and ileocecal valve. The colonoscopy was performed without difficulty. The patient tolerated the procedure well. The quality of the bowel preparation was excellent. Findings: The perianal and digital rectal examinations were normal. Non-bleeding internal hemorrhoids were found during retroflexion. The hemorrhoids were small and Grade I (internal hemorrhoids that do not prolapse). Multiple small and large-mouthed diverticula were found in the recto-sigmoid colon, sigmoid colon and descending colon. The exam was otherwise without abnormality on direct and retroflexion views. Impression: - Non-bleeding internal hemorrhoids. - Diverticulosis in the recto-sigmoid colon, in the sigmoid colon and in the descending colon. - The examination was otherwise normal on direct and retroflexion views. - No specimens collected. - The exam was otherwise normal to the cecum. Recommendation: - Patient has a contact number available for emergencies. The signs and symptoms of potential delayed complications were discussed with the patient. Return to normal activities tomorrow. Written discharge instructions were provided to the patient. - High fiber diet. - Discharge patient to home. - Continue present medications. - Repeat colonoscopy in 5 years for surveillance. - Return to referring physician. - The findings and recommendations were discussed with the patient. Procedure Code(s): --- Professional --- G0105, Colorectal cancer screening; colonoscopy on individual at high risk Diagnosis Code(s): --- Professional --- Z86.010, Personal history of colonic polyps K64.0, First degree hemorrhoids K57.30, Diverticulosis of large intestine without perforation or abscess without bleeding CPT copyright 2019 [employer]. All rights reserved. The codes documented in this report are preliminary and upon show operations supervisor review may be revised to meet current compliance requirements. Leonel Cedillo MD Leonel Cedillo MD 07/30/2021 8:02:58 AM Electronically signed by Leonel Cedillo MD Number of Addenda: 0 Note Initiated On: 07/30/2021 7:33 AM Estimated Blood Loss: Estimated blood loss: none.
[2021-07-30 08:25] VITALS: BP 111/57
== END 2021-07-30 08:33 | disposition home or self-care (01) ==
LOC: M OPP 06:41
PROVIDERS: ATTEND Internal Medicine Gastroenterology
DX: Z12.11 Encounter for screening for malignant neoplasm of colon (principal); K57.30 Diverticulosis of large intestine without perforation or abscess without bleeding; K64.0 First degree hemorrhoids; F17.200 Nicotine dependence, unspecified, uncomplicated; Z80.0 Family history of malignant neoplasm of digestive organs; Z86.010 Personal history of colon polyps

== ENCOUNTER → 2021-12-25 | Outpatient (REF) | payer MEDICARE, OTHER ==
[~2021-12-25] MED LIST changes: -NS 1,000 ML IV ONE
== END ==
LOC: M LAB REF 12:37
PROVIDERS: ATTEND Internal Medicine
DX: M06.4 Inflammatory polyarthropathy (principal)

== ENCOUNTER → 2022-10-16 | Outpatient (REF) | payer MEDICARE, OTHER ==
[2022-10-16 17:00] LABS: C REACTIVE PROTEIN QUANTITATIV 0.6 MG/DL (<1.0)
[2022-10-16 17:03] LABS: FOLATE 6.12 NG/ML (>5.4)
== END ==
LOC: M LAB REF 16:26
PROVIDERS: ATTEND Internal Medicine
DX: D64.9 Anemia, unspecified (principal); M06.00 Rheumatoid arthritis without rheumatoid factor, unspecified site; M19.90 Unspecified osteoarthritis, unspecified site

== ENCOUNTER → 2022-11-19 | Outpatient (REF) | payer MEDICARE, OTHER | LOC: M LAB REF 16:09 | PROVIDERS: ATTEND Internal Medicine | DX: D64.9 Anemia, unspecified (principal); R53.83 Other fatigue ==

== ENCOUNTER → 2022-12-22 | Outpatient (REF) | payer MEDICARE, OTHER | LOC: M LAB REF 12:32 | PROVIDERS: ATTEND Internal Medicine | DX: M06.00 Rheumatoid arthritis without rheumatoid factor, unspecified site (principal) ==

== ENCOUNTER → 2023-02-02 | Outpatient (CLI) | payer MEDICARE, BC, OTHER | LOC: M RAD 10:26 | PROVIDERS: ATTEND Internal Medicine | DX: Z87.891 Personal history of nicotine dependence (principal) ==

== ENCOUNTER → 2023-03-08 | Outpatient (CLI) | payer MEDICARE, BC, OTHER | LOC: M PLARAD 14:02 | PROVIDERS: ATTEND Internal Medicine | DX: R91.1 Solitary pulmonary nodule (principal) | CPT/HCPCS: 78815; A9552 ==

== ENCOUNTER → 2023-11-08 | Outpatient (REF) | payer MEDICARE, BC, OTHER | LOC: M SFHCWAGY 17:15 | PROVIDERS: ATTEND Nurse Practitioner Family | DX: Z12.4 Encounter for screening for malignant neoplasm of cervix (principal); R87.610 Atypical squamous cells of undetermined significance on cytologic smear of cervix (ASC-US) | CPT/HCPCS: 87624; G0123 ==

== ENCOUNTER → 2023-12-22 | Outpatient (REF) | payer MEDICARE, BC, OTHER | LOC: M LAB REF 11:57 | PROVIDERS: ATTEND Internal Medicine | DX: M06.00 Rheumatoid arthritis without rheumatoid factor, unspecified site (principal) ==

== ENCOUNTER → 2024-02-04 | Outpatient (CLI) | payer MEDICARE, BC | LOC: M RAD 12:54 | PROVIDERS: ATTEND Internal Medicine Pulmonary Disease | DX: R91.1 Solitary pulmonary nodule (principal) ==

== ENCOUNTER 2024-03-31 12:49 | Inpatient (IN) | payer MEDICARE, BC ==
[~2024-03-31] VITALS: Ht 172.7 cm; Wt 65.8 kg
[2024-03-31] VITALS (24 sets, daily range): BP systolic 122–182; BP diastolic 57–88; TEMP 97–99; O2SAT 95–99
[~2024-03-31 12:49] MED LIST changes: -ESTR3TA; +ESTR3TA PO
[2024-03-31 13:34] LABS: BASO # 0.1 10^3/uL (0.0-0.2); BASO % 0.6 % (0.0-1.0); EOS # 0.1 10^3/uL (0.0-0.5); EOS % 0.7 % (0.0-3.0); HEMATOCRIT 39.9 % (36.0-47.0); HEMOGLOBIN 13.5 g/dl (12.0-15.5); LYMPH # 1.9 10^3/uL (1.5-5.0); LYMPH % 21.1 % (24.0-44.0); MEAN CORPUSCULAR HEMOGLOBIN 34.4 pg (27.0-33.0); MEAN CORPUSCULAR HGB CONC 33.8 g/dl (32.0-36.5); MEAN CORPUSCULAR VOLUME 101.5 fl (80.0-96.0); MONO # 0.6 10^3/uL (0.0-0.8); MONO % 6.6 % (2.0-8.0); NEUTROPHILS # 6.4 10^3/uL (1.5-8.5); NEUTROPHILS % 70.6 % (36.0-66.0); PLATELET COUNT, AUTOMATED 266 10^3/uL (150-450); RED BLOOD COUNT 3.93 10^6/uL (4.00-5.40); WHITE BLOOD COUNT 9.1 10^3/uL (4.0-10.0)
[2024-03-31] MEDS: niCARdipine IV 40 MG in IV 1 EA IV SCH (13:44)
[2024-03-31 13:49] LABS: INR 0.9; PARTIAL THROMBOPLASTIN TIME 25.2 SECONDS (24.8-34.2); PROTHROMBIN TIME 11.9 SECONDS (12.5-14.5)
[2024-03-31 13:52] LABS: CK-MB VALUE MASS 1.8 NG/ML (<3.6)
[2024-03-31 13:54] LABS: BLOOD UREA NITROGEN 12 MG/DL (9-23); CALCIUM LEVEL 9.5 MG/DL (8.3-10.6); CARBON DIOXIDE LEVEL 26 MMOL/L (20-31); CHLORIDE LEVEL 101 MMOL/L (98-107); CREATININE FOR GFR 0.61 MG/DL (0.55-1.30); GLOMERULAR FILTRATION RATE > 60.0 (>45); GLUCOSE, FASTING 101 MG/DL (74-106); POTASSIUM SERUM 5.3 MMOL/L (3.5-5.1); SODIUM LEVEL 135 MMOL/L (136-145)
[2024-03-31 13:56] LABS: CPK CREATINE PHOSPHOKINASE 84 U/L (34-145); MB/CK RELATIVE INDEX 2.14 (< OR =4)
[2024-03-31] MEDS: DEXTROSE 50% 50ML SYRINGE IV STA (14:21)
[2024-03-31] MEDS: CALCIUM GLUCONATE 1,000 MG in D5W MINI-BAG PLUS 100 ML IV ONE (14:21)
[2024-03-31] MEDS: HumuLIN R (REGULAR) INSULIN (NovoLIN R) **100U/ML** PER UNIT IV ONE (14:21)
[2024-03-31] MEDS: TENECTEPLASE 50 MG/10 ML VIAL IVP ONE (14:44)
[2024-03-31] MEDS: SODIUM CHLORIDE 0.9% INJ 10 ML SYR IV ONE ×2 (14:45)
[2024-03-31] MEDS ORDERED: FINA0.05 TOP (16:43)
[2024-03-31] MEDS ORDERED: HOME MED LIST COMPLETE! XX SCH (16:45)
[2024-03-31] MEDS: ALPRAZolam 0.5 MG TAB PO ONE (17:39)
[2024-03-31] MEDS ORDERED: HEPARIN SOD (PORCINE) 5000UNITS/ML 1ML VIAL/SYRINGE SC SCH (20:00)
[2024-04-01] VITALS (20 sets, daily range): BP systolic 113–179; BP diastolic 56–91; TEMP 97.4–98.8; O2SAT 96–100
[2024-04-01 05:28] LABS: HEMATOCRIT 37.6 % (36.0-47.0); HEMOGLOBIN 12.8 g/dl (12.0-15.5); MEAN CORPUSCULAR HEMOGLOBIN 34.3 pg (27.0-33.0); MEAN CORPUSCULAR VOLUME 100.8 fl (80.0-96.0); PLATELET COUNT, AUTOMATED 218 10^3/uL (150-450); RED BLOOD COUNT 3.73 10^6/uL (4.00-5.40)
[2024-04-01 05:53] LABS: ALBUMIN 3.1 G/DL (3.2-5.2); ALKALINE PHOSPHATASE 39 U/L (46-116); ALT/SGPT < 9 U/L (7.0-40); AST/SGOT 10 U/L (<34); BILIRUBIN,TOTAL 0.7 MG/DL (0.3-1.2); BLOOD UREA NITROGEN 10 MG/DL (9-23); CALCIUM LEVEL 8.6 MG/DL (8.3-10.6); CARBON DIOXIDE LEVEL 27 MMOL/L (20-31); CHLORIDE LEVEL 103 MMOL/L (98-107); CREATININE FOR GFR 0.61 MG/DL (0.55-1.30); GLOMERULAR FILTRATION RATE > 60.0 (>45); GLUCOSE, FASTING 91 MG/DL (74-106); POTASSIUM SERUM 3.7 MMOL/L (3.5-5.1); SODIUM LEVEL 136 MMOL/L (136-145); TOTAL PROTEIN 5.8 G/DL (5.7-8.2)
[2024-04-01] MEDS: amLODIPine 5 MG TAB PO SCH (09:00)
[2024-04-01] MEDS: ATORVASTATIN 20 MG TAB PO SCH (09:24)
[2024-04-01] MEDS: ACETAMINOPHEN TAB 650MG DOSE (2X325MG) PO PRN (11:08)
[2024-04-01] MEDS: ASPIRIN 81MG ENTERIC TABLET PO SCH (14:16)
[2024-04-01] MEDS: ENOXAPARIN 40MG/0.4ML SYRINGE (J1650 PER 10MG) SC SCH (14:16)
[2024-04-01 15:14] LABS: CHOLESTEROL LEVEL 177 MG/DL (<200); CHOLESTEROL RISK RATIO 1.94 (<5); HDL CHOLESTEROL 90.9 MG/DL (>40); LDL CHOLESTEROL 66.5 MG/DL (<100); NON-HDL-C 86.1 MG/DL; TRIGLYCERIDES LEVEL 98 MG/DL (<150)
[2024-04-02] VITALS: BP 152/72; TEMP 97.8; O2SAT 98
[2024-04-02 04:00] VITALS: BP 127/60; TEMP 97.7; O2SAT 95
[2024-04-02 05:18] LABS: HEMATOCRIT 37.2 % (36.0-47.0); MEAN CORPUSCULAR HEMOGLOBIN 34.6 pg (27.0-33.0); MEAN CORPUSCULAR HGB CONC 34.9 g/dl (32.0-36.5); MEAN CORPUSCULAR VOLUME 98.9 fl (80.0-96.0); PLATELET COUNT, AUTOMATED 212 10^3/uL (150-450); RED BLOOD COUNT 3.76 10^6/uL (4.00-5.40); WHITE BLOOD COUNT 5.9 10^3/uL (4.0-10.0)
[2024-04-02 05:53] LABS: ALKALINE PHOSPHATASE 37 U/L (46-116); ALT/SGPT < 9 U/L (7.0-40); AST/SGOT < 8 U/L (<34); BILIRUBIN,TOTAL 0.7 MG/DL (0.3-1.2); BLOOD UREA NITROGEN 13 MG/DL (9-23); CALCIUM LEVEL 8.6 MG/DL (8.3-10.6); CARBON DIOXIDE LEVEL 26 MMOL/L (20-31); CHLORIDE LEVEL 104 MMOL/L (98-107); CREATININE FOR GFR 0.53 MG/DL (0.55-1.30); GLOMERULAR FILTRATION RATE > 60.0 (>45); GLUCOSE, FASTING 84 MG/DL (74-106); POTASSIUM SERUM 4.1 MMOL/L (3.5-5.1); SODIUM LEVEL 135 MMOL/L (136-145); TOTAL PROTEIN 5.8 G/DL (5.7-8.2)
[2024-04-02] MEDS ORDERED: ATOR1TAB21 PO (07:30)
[2024-04-02] MEDS ORDERED: ASPI81TAEC PO (07:30)
[2024-04-02] MEDS ORDERED: AMLO1TAB24 PO (07:30)
[2024-04-02 08:00] VITALS: BP 155/72; TEMP 98.2; O2SAT 98
[2024-04-02] MEDS: ATORVASTATIN 20 MG TAB PO SCH (09:05)
[2024-04-02 09:08] VITALS: BP 163/74
[2024-04-02] MEDS: amLODIPine 5 MG TAB PO SCH (09:08)
[2024-04-02] MEDS ORDERED: AMLO10TA PO (16:37)
[2024-04-02] MEDS ORDERED: ASPI81TA26 PO (16:37)
[2024-04-02] MEDS ORDERED: ATOR40TA75 PO (16:37)
== END 2024-04-02 10:36 | disposition home or self-care (01) | DRG 103 ==
LOC: M ED 12:49 → M ED INP 14:52 → M ICU 14:52
PROVIDERS: ADMIT Internal Medicine Pulmonary Disease; ATTEND Internal Medicine
PROC: 3E03317 Introduction of Other Thrombolytic into Peripheral Vein, Percutaneous Approach (ICD-10-PCS; principal; 2024-03-31)
PROC: B246ZZZ Ultrasonography of Right and Left Heart (ICD-10-PCS; 2024-04-01)
DX: G43.109 Migraine with aura, not intractable, without status migrainosus (principal); I16.1 Hypertensive emergency; I67.82 Cerebral ischemia; R47.89 Other speech disturbances; J43.9 Emphysema, unspecified; R91.1 Solitary pulmonary nodule; F17.210 Nicotine dependence, cigarettes, uncomplicated; M06.9 Rheumatoid arthritis, unspecified; I72.0 Aneurysm of carotid artery; H53.9 Unspecified visual disturbance; I1A.0 Resistant hypertension; I10 Essential (primary) hypertension; G31.1 Senile degeneration of brain, not elsewhere classified; R93.0 Abnormal findings on diagnostic imaging of skull and head, not elsewhere classified; Z90.710 Acquired absence of both cervix and uterus; Z88.0 Allergy status to penicillin; Z91.041 Radiographic dye allergy status; Z79.899 Other long term (current) drug therapy; Z79.82 Long term (current) use of aspirin

== ENCOUNTER 2024-04-02 12:42 | Observation (INO) | payer MEDICARE, BC ==
[~2024-04-02] VITALS: Ht 172.7 cm; Wt 55.0 kg
[~2024-04-02 12:42] MED LIST changes: +AMLO1TAB24 PO; +ASPI81TAEC PO; +ATOR1TAB21 PO; +FINA0.05 TOP
[2024-04-02 13:53] LABS: BASO # 0.1 10^3/uL (0.0-0.2); BASO % 0.6 % (0.0-1.0); EOS # 0.1 10^3/uL (0.0-0.5); EOS % 0.8 % (0.0-3.0); HEMATOCRIT 40.2 % (36.0-47.0); HEMOGLOBIN 13.6 g/dl (12.0-15.5); LYMPH # 1.4 10^3/uL (1.5-5.0); LYMPH % 16.5 % (24.0-44.0); MEAN CORPUSCULAR HEMOGLOBIN 34.8 pg (27.0-33.0); MEAN CORPUSCULAR HGB CONC 33.8 g/dl (32.0-36.5); MEAN CORPUSCULAR VOLUME 102.8 fl (80.0-96.0); MONO # 0.6 10^3/uL (0.0-0.8); MONO % 7.5 % (2.0-8.0); NEUTROPHILS # 6.1 10^3/uL (1.5-8.5); PLATELET COUNT, AUTOMATED 228 10^3/uL (150-450); RED BLOOD COUNT 3.91 10^6/uL (4.00-5.40); WHITE BLOOD COUNT 8.2 10^3/uL (4.0-10.0)
[2024-04-02 14:05] LABS: INR 0.97; PARTIAL THROMBOPLASTIN TIME 26.1 SECONDS (24.8-34.2); PROTHROMBIN TIME 12.6 SECONDS (12.5-14.5)
[2024-04-02 14:09] VITALS: BP 151/71; TEMP 98.3; O2SAT 100
[2024-04-02 14:42] VITALS: BP 168/76; TEMP 98; O2SAT 97
[2024-04-02 15:15] LABS: CK-MB VALUE MASS 1.3 NG/ML (<3.6)
[2024-04-02 15:16] LABS: BLOOD UREA NITROGEN 17 MG/DL (9-23); CARBON DIOXIDE LEVEL 22 MMOL/L (20-31); CHLORIDE LEVEL 102 MMOL/L (98-107); CREATININE FOR GFR 0.68 MG/DL (0.55-1.30); GLOMERULAR FILTRATION RATE > 60.0 (>45); GLUCOSE, FASTING 83 MG/DL (74-106); POTASSIUM SERUM 4.2 MMOL/L (3.5-5.1); SODIUM LEVEL 136 MMOL/L (136-145)
[2024-04-02 15:21] LABS: CPK CREATINE PHOSPHOKINASE 60 U/L (34-145); MB/CK RELATIVE INDEX 2.16 (< OR =4)
[2024-04-02] MEDS ORDERED: ACETAMINOPHEN TAB 650MG DOSE (2X325MG) PO PRN (16:05)
[2024-04-02] MEDS ORDERED: **hydrALAZINE** 10 MG TAB PO PRN (16:05)
[2024-04-02] MEDS ORDERED: ASPI81TA26 PO (16:37)
[2024-04-02] MEDS ORDERED: AMLO10TA PO (16:37)
[2024-04-02] MEDS ORDERED: ATOR40TA75 PO (16:37)
[2024-04-02] MEDS ORDERED: HOME MED LIST COMPLETE! XX SCH (16:40)
[2024-04-02 17:13] LABS: INR 1.03; PARTIAL THROMBOPLASTIN TIME 26.8 SECONDS (24.8-34.2); PROTHROMBIN TIME 13.2 SECONDS (12.5-14.5)
[2024-04-02] MEDS: ALPRAZolam 0.25 MG TAB PO ONE (20:23)
[2024-04-02] MEDS: ENOXAPARIN 40MG/0.4ML SYRINGE (J1650 PER 10MG) SC SCH (21:00)
[2024-04-03 06:00] LABS: HEMATOCRIT 39.6 % (36.0-47.0); HEMOGLOBIN 13.5 g/dl (12.0-15.5); MEAN CORPUSCULAR HEMOGLOBIN 34.3 pg (27.0-33.0); MEAN CORPUSCULAR HGB CONC 34.1 g/dl (32.0-36.5); MEAN CORPUSCULAR VOLUME 100.5 fl (80.0-96.0); PLATELET COUNT, AUTOMATED 196 10^3/uL (150-450); RED BLOOD COUNT 3.94 10^6/uL (4.00-5.40)
[2024-04-03 06:09] LABS: ALBUMIN 3.1 G/DL (3.2-5.2); ALKALINE PHOSPHATASE 38 U/L (46-116); ALT/SGPT < 9 U/L (7.0-40); AST/SGOT < 8 U/L (<34); BILIRUBIN,TOTAL 0.5 MG/DL (0.3-1.2); BLOOD UREA NITROGEN 17 MG/DL (9-23); CALCIUM LEVEL 8.6 MG/DL (8.3-10.6); CARBON DIOXIDE LEVEL 24 MMOL/L (20-31); CHLORIDE LEVEL 105 MMOL/L (98-107); CREATININE FOR GFR 0.54 MG/DL (0.55-1.30); GLOMERULAR FILTRATION RATE > 60.0 (>45); GLUCOSE, FASTING 78 MG/DL (74-106); POTASSIUM SERUM 4.1 MMOL/L (3.5-5.1); SODIUM LEVEL 137 MMOL/L (136-145); TOTAL PROTEIN 5.9 G/DL (5.7-8.2)
[2024-04-03] MEDS: ATORVASTATIN 20 MG TAB PO SCH (09:56)
[2024-04-03 09:57] VITALS: BP 131/65
[2024-04-03] MEDS: ALPRAZolam 0.25 MG TAB PO ONE (13:19)
[2024-04-03] MEDS: ASPIRIN 81MG ENTERIC TABLET PO SCH (15:23)
[2024-04-03 18:11] VITALS: BP 166/70; TEMP 97.5; O2SAT 95
[2024-04-04] MEDS ORDERED: NICOTINE 7 MG/24 HR TRANSDERMAL TD SCH (09:00)
== END 2024-04-03 18:12 | disposition home or self-care (01) ==
LOC: M ED 12:42 → M ED INP 16:02
PROVIDERS: ADMIT Internal Medicine; ATTEND Internal Medicine
DX: H53.9 Unspecified visual disturbance (principal); I1A.0 Resistant hypertension; J43.9 Emphysema, unspecified; M06.9 Rheumatoid arthritis, unspecified; I10 Essential (primary) hypertension; G43.109 Migraine with aura, not intractable, without status migrainosus; I67.82 Cerebral ischemia; G31.1 Senile degeneration of brain, not elsewhere classified; R93.0 Abnormal findings on diagnostic imaging of skull and head, not elsewhere classified; Z90.710 Acquired absence of both cervix and uterus; Z88.0 Allergy status to penicillin; Z91.041 Radiographic dye allergy status; Z79.899 Other long term (current) drug therapy; Z79.82 Long term (current) use of aspirin

== ENCOUNTER → 2024-10-30 | Outpatient (CLI) | payer MEDICARE, BC ==
[~2024-10-30] MED LIST changes: +AMLO10TA PO; +ASPI81TA26 PO; +ATOR40TA75 PO
== END ==
LOC: M WUC 11:01
PROVIDERS: ATTEND Nurse Practitioner Family
DX: K59.00 Constipation, unspecified (principal)

== ENCOUNTER → 2024-12-22 | Outpatient (REF) | payer MEDICARE, BC | LOC: M LAB REF 14:38 | PROVIDERS: ATTEND Internal Medicine | DX: M06.00 Rheumatoid arthritis without rheumatoid factor, unspecified site (principal) ==

== ENCOUNTER 2025-01-29 08:14 | Day surgery (SDC) | payer MEDICARE, BC ==
[~2025-01-29] VITALS: Ht 172.7 cm; Wt 53.0 kg
[~2025-01-29 08:14] MED LIST changes: +AMLO-751 PO; -AMLO10TA PO; +ATOR1TAB19 PO
[2025-01-29] MEDS ORDERED: LIDOCAINE 2% 100MG/5ML SDV (FOR ANES.) As Ordered ONE (10:21)
[2025-01-29] MEDS ORDERED: propofoL 200 MG/20 ML VIAL As Ordered ONE (10:21)
[2025-01-29 11:09] VITALS: BP 150/82; O2SAT 95
== END 2025-01-29 11:30 | disposition home or self-care (01) ==
LOC: M OPP 08:14
PROVIDERS: ATTEND Internal Medicine Gastroenterology
DX: Z12.11 Encounter for screening for malignant neoplasm of colon (principal); K64.0 First degree hemorrhoids; K57.30 Diverticulosis of large intestine without perforation or abscess without bleeding; K58.1 Irritable bowel syndrome with constipation; Z80.0 Family history of malignant neoplasm of digestive organs; F17.200 Nicotine dependence, unspecified, uncomplicated; Z79.82 Long term (current) use of aspirin; Z79.899 Other long term (current) drug therapy

== ENCOUNTER → 2025-04-26 | Outpatient (REF) | payer MEDICARE, BC ==
[2025-04-28 12:27] LABS: HPV APTIMA Not Detected (Not Detected)
== END ==
LOC: M SFHCDERM 17:45
PROVIDERS: ATTEND Nurse Practitioner Family
DX: Z12.4 Encounter for screening for malignant neoplasm of cervix (principal)
CPT/HCPCS: 87624; G0123

== ENCOUNTER 2025-05-29 15:30 | Emergency (ER) | payer MEDICARE, BC ==
[~2025-05-29] VITALS: Ht 172.7 cm; Wt 54.9 kg
[2025-05-29 17:10] LABS: BASO # 0.1 10^3/uL (0.0-0.2); BASO % 0.6 % (0.0-1.0); EOS # 0.0 10^3/uL (0.0-0.5); EOS % 0.2 % (0.0-3.0); LYMPH # 1.9 10^3/uL (1.5-5.0); LYMPH % 22.7 % (24.0-44.0); MONO # 0.5 10^3/uL (0.0-0.8); MONO % 5.8 % (2.0-8.0); NEUTROPHILS # 5.8 10^3/uL (1.5-8.5); NEUTROPHILS % 70.5 % (36.0-66.0); PLATELET COUNT, AUTOMATED 197 10^3/uL (150-450)
[2025-05-29 17:13] LABS: KETONE, URINE AUTO RFX 1+ mg/dL (NEGATIVE); LEUKOCYTE ESTERASE UR AUTO RFX NEGATIVE (NEGATIVE); MUCUS, URINE RFX SMALL (NEGATIVE); NITRITE, URINE AUTO RFX NEGATIVE (NEGATIVE); RBC, URINE AUTO RFX 0 /HPF (0-3); SQUAM EPITHELIAL CELL UR AURFX 2 /HPF (0-6); WBC, URINE AUTO RFX 0 /HPF (0-3)
[2025-05-29 17:37] LABS: ALT/SGPT 14 U/L (7.0-40); AST/SGOT 24 U/L (<34); CALCIUM LEVEL 9.4 MG/DL (8.3-10.6); CARBON DIOXIDE LEVEL 25 MMOL/L (20-31); CHLORIDE LEVEL 100 MMOL/L (98-107); CREATININE FOR GFR 0.66 MG/DL (0.55-1.30); GLOMERULAR FILTRATION RATE > 90.0 (>39); POTASSIUM SERUM 4.5 MMOL/L (3.5-5.1); SODIUM LEVEL 139 MMOL/L (136-145)
[2025-05-29] MEDS ORDERED: PILL CUTTER 1 EACH XX ONE (17:49)
[2025-05-29] MEDS: amLODIPine 5 MG TAB PO ONE (17:54)
[2025-05-29 18:50] VITALS: BP 197/90
[2025-05-29] MEDS: hydrALAZINE 20 MG/ML 1 ML VIAL IV ONE (18:50)
[2025-05-29] MEDS: diphenhydrAMINE 50 MG/ML VIAL IV ONE (20:47)
[2025-05-29] MEDS: KETOROLAC 30 MG/ML 1 ML VIAL IV ONE (20:47)
[2025-05-29 20:53] LABS: MAGNESIUM LEVEL 1.5 MG/DL (1.8-2.4)
[2025-05-29] MEDS: MAG SULF 1GM/100ML (MAG RUN) 1 GM in IV 1 EA IV ONE (21:12)
[2025-05-29] MEDS ORDERED: AMLO1TAB24 PO (22:47)
[2025-05-29 22:48] VITALS: BP 150/68
[2025-05-29 22:58] VITALS: TEMP 97.1; O2SAT 100
== END 2025-05-29 23:02 | disposition home or self-care (01) ==
LOC: M ED 15:30
DX: I10 Essential (primary) hypertension (principal); Z86.73 Personal history of transient ischemic attack (TIA), and cerebral infarction without residual deficits; Z87.891 Personal history of nicotine dependence; Z88.1 Allergy status to other antibiotic agents; Z91.041 Radiographic dye allergy status; R00.1 Bradycardia, unspecified; Z79.1 Long term (current) use of non-steroidal anti-inflammatories (NSAID); Z79.899 Other long term (current) drug therapy
CPT/HCPCS: 36415; 80048; 80076; 81001; 83690; 83735; 84443; 84484; 85025; 87486; 87581; 87633; 87798; 93005; 93041; 96374; 96375; 99285; J0360; J1200; J1885; J2765; J3475

== ENCOUNTER → 2025-06-25 | Outpatient (REF) | payer MEDICARE, OTHER | LOC: M LAB REF 12:12 | PROVIDERS: ATTEND Internal Medicine | DX: M06.00 Rheumatoid arthritis without rheumatoid factor, unspecified site (principal) ==

== ENCOUNTER → 2025-09-04 | Outpatient (CLI) | payer MEDICARE, BC | LOC: M PLAIMG 13:52 | PROVIDERS: ATTEND Internal Medicine Pulmonary Disease | DX: R91.8 Other nonspecific abnormal finding of lung field (principal); J43.2 Centrilobular emphysema ==